=== PATIENT | female | born 1955 | race Caucasian/White ===

== ENCOUNTER 2020-07-30 09:51 | Outpatient (REF) | payer BC, SELFPAY ==
[2020-07-30 10:58] LABS: INTERNATIONAL NORM RATIO 1.8 (0.9-1.1); Prothrombin Time 21.6 SEC (10.8-13.0)
== END 2020-07-30 09:52 | disposition home or self-care (01) ==
LOC: HO.WFDLDS 09:51
PROVIDERS: Visit Provider Internal Medicine
DX: I82.3 Embolism and thrombosis of renal vein (principal); Z79.01 Long term (current) use of anticoagulants
CPT/HCPCS: 36415; 85610

== ENCOUNTER 2020-09-23 13:56 | Outpatient (REF) | payer BC, SELFPAY ==
[2020-09-23 14:10] LABS: INTERNATIONAL NORM RATIO 2.2 (0.9-1.1); Prothrombin Time 26.4 SEC (10.8-13.0)
== END 2020-09-23 13:57 | disposition home or self-care (01) ==
LOC: HO.LNP 13:56
PROVIDERS: Visit Provider Internal Medicine
DX: I82.3 Embolism and thrombosis of renal vein (principal); Z79.01 Long term (current) use of anticoagulants
CPT/HCPCS: 85610

== ENCOUNTER 2020-10-17 11:58 | Outpatient (REF) | payer BC, SELFPAY ==
[2020-10-17 14:13] LABS: INTERNATIONAL NORM RATIO 2.5 (0.9-1.1); Prothrombin Time 30.5 SEC (10.8-13.0)
== END 2020-10-17 11:59 | disposition home or self-care (01) ==
LOC: HO.WFDLDS 11:58
PROVIDERS: Visit Provider Internal Medicine
DX: I82.3 Embolism and thrombosis of renal vein (principal)
CPT/HCPCS: 36415; 85610

== ENCOUNTER 2020-11-24 09:49 | Outpatient (REF) | payer MEDICARE, SELFPAY ==
[2020-11-24 11:26] LABS: INTERNATIONAL NORM RATIO 1.8 (0.9-1.1); Prothrombin Time 20.9 SEC (10.8-13.0)
[2020-11-24 11:40] LABS: Cholesterol 216 mg/dL; HDL Cholesterol 39 mg/dL; LDL Cholesterol Calculated 157 mg/dl; Triglycerides 102 mg/dL
== END 2020-11-24 09:50 | disposition home or self-care (01) ==
LOC: HO.WFDLDS 09:49
PROVIDERS: Visit Provider Internal Medicine
DX: E78.00 Pure hypercholesterolemia, unspecified (principal)
CPT/HCPCS: 36415; 80061; 85610

== ENCOUNTER 2021-01-21 10:47 | Outpatient (REF) | payer MEDICARE, SELFPAY ==
[2021-01-21 14:01] LABS: INTERNATIONAL NORM RATIO 2.4 (0.9-1.1); Prothrombin Time 29.3 SEC (10.8-13.0)
== END 2021-01-21 10:48 | disposition home or self-care (01) ==
LOC: HO.WFDLDS 10:47
PROVIDERS: Visit Provider Internal Medicine
DX: I82.3 Embolism and thrombosis of renal vein (principal); Z79.01 Long term (current) use of anticoagulants
CPT/HCPCS: 36415; 85610

== ENCOUNTER 2021-04-14 11:10 | Outpatient (REF) | payer MEDICARE, SELFPAY ==
[2021-04-14 14:06] LABS: INTERNATIONAL NORM RATIO 2.6 (0.9-1.1); Prothrombin Time 30.4 SEC (9.9-13.0)
== END 2021-04-14 11:11 | disposition home or self-care (01) ==
LOC: HO.WFDLDS 11:10
PROVIDERS: Visit Provider Internal Medicine
DX: I82.3 Embolism and thrombosis of renal vein (principal); Z79.01 Long term (current) use of anticoagulants
CPT/HCPCS: 36415; 85610

== ENCOUNTER 2021-06-01 10:24 | Outpatient (REF) | payer MEDICARE, SELFPAY ==
[2021-06-01 10:27] LABS: MANUAL DIFF FLAG NO
[2021-06-01 11:00] LABS: Basophils Percent Auto 0.8 % (0-2); Eosinophils Absolute Auto 0.2 X10*3/uL (0.0-0.4); Eosinophils Percent Auto 2.9 % (0-4); Hematocrit 43.7 % (37.0-47.0); Hemoglobin 14.3 g/dl (12.0-16.0); Imm Gran Abs Auto 0.01 X10*3/uL (0.00-0.03); Imm Gran Pct Auto 0.2 % (0.0-0.4); Lymphocytes Absolute Auto 2.1 X10*3/uL (1.2-4.9); Lymphocytes Percent Auto 41.3 % (20-40); Mean Corpuscular HGB Conc 32.7 g/dl (31.0-35.0); Mean Corpuscular Hemoglobin 29.4 pg (27.0-33.0); Mean Corpuscular Volume 89.7 fL (80.0-98.0); Mean Platelet Volume 9.4 fL (9.4-12.3); Monocytes Absolute Auto 0.5 X10*3/uL (0.1-1.2); Monocytes Percent Auto 9.5 % (2-11); Neutrophils Absolute Auto 2.4 x10*3/uL (2.0-8.3); Neutrophils Percent Auto 45.3 % (45-73); Platelet Count 265 X10*3/uL (160-400); Red Blood Count 4.87 X10*6/uL (4.20-5.50); Red Cell Distribution Width 13.3 % (11.0-16.0); White Blood Count 5.2 X10*3/uL (4.8-10.8)
[2021-06-01 11:21] LABS: Alanine Aminotransferase 23 U/L (0-31); Albumin Level 4.2 g/dL (3.5-5.0); Alkaline Phosphatase 101 U/L (39-117); Anion Gap 12 (12-20); Aspartate Amino Transferase 23 U/L (5-31); Bilirubin Total 0.7 mg/dL (0.0-1.0); Blood Urea Nitrogen 13 mg/dL (9-16); Calcium 9.5 mg/dL (8.4-10.2); Carbon Dioxide 27 mmol/L (22-29); Chloride 108 mmol/L (96-108); Cholesterol 260 mg/dL; Estimated Glomerular Filt Rate > 60; Glucose Fasting 95 mg/dL (60-99); HDL Cholesterol 47 mg/dL; LDL Cholesterol Calculated 183 mg/dl; Potassium 4.5 mmol/L (3.3-5.1); Sodium 142 mmol/L (135-145); Total Protein 7.1 g/dL (6.5-8.0); Triglycerides 150 mg/dL
[2021-06-01 12:48] LABS: Reflex LDLD? No
== END 2021-06-01 10:25 | disposition home or self-care (01) ==
LOC: HO.LNP 10:24
PROVIDERS: Visit Provider Internal Medicine
DX: E78.00 Pure hypercholesterolemia, unspecified (principal); Z79.01 Long term (current) use of anticoagulants
CPT/HCPCS: 80053; 80061; 85025

== ENCOUNTER 2021-06-05 15:52 | Outpatient (REF) | payer MEDICARE, SELFPAY ==
[2021-06-05 16:02] LABS: Appearance Urine CLEAR; Color Urine YELLOW; Glucose Urine UA NEG (NEG); Leukocyte Esterase Urine 2+ (NEG); Nitrite Urine NEG (NEG); Urine Blood NEG (NEG); Urine Ketones NEG (NEG); Urine Protein NEG (NEG-TRACE)
[2021-06-05 16:08] LABS: Bacteria Urine TRACE /LPF; RBC Urine 0-2 /HPF (0); Renal Epithelial Cells Urine TRACE /LPF; Squamous Epithelial Cell Urine TRACE /LPF
== END 2021-06-05 15:53 | disposition home or self-care (01) ==
LOC: HO.LNP 15:52
PROVIDERS: Visit Provider Internal Medicine
DX: E78.00 Pure hypercholesterolemia, unspecified (principal)
CPT/HCPCS: 81001

== ENCOUNTER 2021-07-30 11:09 | Outpatient (REF) | payer MEDICARE, SELFPAY ==
[2021-07-30 14:04] LABS: INTERNATIONAL NORM RATIO 2.1 (0.9-1.1); Prothrombin Time 24.7 SEC (9.9-13.0)
== END 2021-07-30 11:10 | disposition home or self-care (01) ==
LOC: HO.WFDLDS 11:09
PROVIDERS: Visit Provider Internal Medicine
DX: I82.3 Embolism and thrombosis of renal vein (principal); Z79.01 Long term (current) use of anticoagulants
CPT/HCPCS: 36415; 85610

== ENCOUNTER 2021-09-10 10:45 | Outpatient (REF) | payer MEDICARE, SELFPAY ==
[2021-09-10 14:46] LABS: Appearance Urine HAZY; Color Urine YELLOW; Glucose Urine UA NEG (NEG); Leukocyte Esterase Urine 2+ (NEG); Nitrite Urine NEG (NEG); PH 6.5 (5.0-8.0); Urine Blood NEG (NEG); Urine Ketones NEG (NEG); Urine Protein NEG (NEG-TRACE)
[2021-09-10 15:01] LABS: INTERNATIONAL NORM RATIO 2.2 (0.9-1.1); Prothrombin Time 24.9 SEC (9.9-13.0)
[2021-09-10 15:04] LABS: Alanine Aminotransferase 20 U/L (0-31); Albumin Level 4.5 g/dL (3.5-5.0); Alkaline Phosphatase 114 U/L (39-117); Aspartate Amino Transferase 22 U/L (5-31); Bilirubin Direct 0.2 mg/dL (0.0-0.5); Bilirubin Total 0.5 mg/dL (0.0-1.0); Cholesterol 162 mg/dL; HDL Cholesterol 45 mg/dL; LDL Cholesterol Calculated 101 mg/dl; Total Protein 7.6 g/dL (6.5-8.0); Triglycerides 82 mg/dL
[2021-09-10 15:10] LABS: Bacteria Urine 1+ /LPF; RBC Urine 0 /HPF (0); Squamous Epithelial Cell Urine 1+ /LPF
== END 2021-09-10 10:46 | disposition home or self-care (01) ==
LOC: HO.LNP 10:45
PROVIDERS: Visit Provider Internal Medicine
DX: I82.3 Embolism and thrombosis of renal vein (principal); Z79.01 Long term (current) use of anticoagulants; E78.00 Pure hypercholesterolemia, unspecified
CPT/HCPCS: 80061; 80076; 81001; 85610

== ENCOUNTER 2021-10-19 11:32 | Outpatient (REF) | payer MEDICARE, SELFPAY ==
--- NOTE | ~2021-10-19 | US_ITS ---
EXAMINATION: US RETROPERITONEAL LIMITED (RENAL ONLY) CLINICAL INFORMATION: History of renal cell carcinoma. COMPARISON: None TECHNIQUE: Real-time imaging of the kidneys. FINDINGS: RIGHT KIDNEY: Surgically absent. LEFT KIDNEY: 12.1 x 5.3 x 5.9 cm (SAG x AP x TRV). The kidney is normal in size, contour, and echogenicity. Renal cortical thickness is normal. No calculi or focal parenchymal lesions. No hydronephrosis. US/US renal BI IMPRESSION: Normal left kidney.
== END 2021-10-19 11:33 | disposition home or self-care (01) ==
LOC: HO.US 11:32
PROVIDERS: PCP Internal Medicine; Visit Provider Internal Medicine
DX: Z85.528 Personal history of other malignant neoplasm of kidney (principal)
CPT/HCPCS: 76775

== ENCOUNTER 2021-11-17 06:25 | Day surgery (SDC) | payer MEDICARE, SELFPAY ==
[2021-11-17 05:51] VITALS: BMI 21.9
[2021-11-17 06:30] VITALS: BP 149/57; PULSE 86; RESP 18; TEMP 36.4; O2SAT 96
[2021-11-17 07:03] LABS: INTERNATIONAL NORM RATIO 1.1 (0.9-1.1)
--- NOTE | 2021-11-17 07:25 | MHC.SHP ---
Pre-Procedural Eval Section A Date of Service: 11/17/21 Section B Chief Complaint: screening Details of Present Illness: screening Relevant Family History (Specify if Yes): No Relevant Social History: None Present Medications: see Short Stay Collaborative assessment Medical History: No relevant PMH History of Previous Operations: No relevant previous surgery Allergies: Allergies Allergy/AdvReac Type Severity Reaction Status Date / Time Iodinated Contrast Media Allergy Unknown Verified 11/11/21 11:03 [IV Contrast Dye] Penicillins Allergy Unknown Verified 11/11/21 11:03 shellfish derived Allergy Unknown Verified 11/11/21 11:03 Review of Systems Sugical H&P ROS: Negative: Constitution, Cardiovascular, Respiratory, Neurological, Psychiatric, Hem-Onc, Allergic/Immunologic, Gastrointestinal, Genitourinary, Musculoskeletal, Integumentary, Endocrine and Eyes/Ears/Nose/Throat Exam Surgical H&P Exam: Normal: HEENT, Normal: Heart, Normal: Lungs, Normal: Extremities, Normal: Abdomen, Normal: Skin and Normal: Neurological Plan Diagnosis/Plan: Unchanged I have reviewed the history and physical and performed a pertinent physical examination on my patient. No changes have occurred unless specified.
--- NOTE | 2021-11-17 07:33 | HO.ANESPROP2 ---
[facility] Past Medical History Medical History Breast cancer DVT (deep venous thrombosis) Elevated cholesterol On anticoagulant therapy Osteopenia Panic attacks Renal cell carcinoma Functional capacity: independent ambulation Patient : No Family History Family history of problems with anesthesia: No Surgical History Surgical History History of right nephrectomy History of tubal ligation Hx of colonoscopy Hx of left mastectomy S/P IVC filter History of Problems with Anesthesia: Yes (PONV) Social History Social History Patient Tobacco Use Status: Never used Tobacco Are you DNR?: No Advance Directives: No Advance Directives Information Provided: Yes Meds Allergies Allergy/AdvReac Type Severity Reaction Status Date / Time Iodinated Contrast Media Allergy Unknown Verified 11/11/21 11:03 [IV Contrast Dye] Penicillins Allergy Unknown Verified 11/11/21 11:03 shellfish derived Allergy Unknown Verified 11/11/21 11:03 Home Medications Medication Instructions Recorded Confirmed Last Taken Type atorvastatin 20 mg tablet 1 tab PO DAILY 11/11/21 11/11/21 Unknown History calcium 600 mg capsule mg PO 11/11/21 Unknown History cetirizine 10 mg capsule (Zyrtec) 10 mg PO DAILY 11/11/21 11/11/21 Unknown History lorazepam 1 mg tablet 1 tab PO DAILY 11/11/21 11/11/21 Unknown History valacyclovir 500 mg tablet mg PO 11/11/21 Unknown History warfarin 2 mg tablet 3 tab PO DAILY 11/11/21 11/11/21 Unknown History Exam Exam Date and Time: November 17, 2021 0733 Height,Weight and Vital Signs: Height 5 ft 6 in Weight 61.689 kg Last Vital Signs Temp 97.6 F 11/17/21 06:30 Pulse 86 11/17/21 06:30 Resp 18 11/17/21 06:30 BP 149/57 H 11/17/21 06:30 Pulse Ox 96 11/17/21 06:30 Pertinent Lab Results Pertinent Lab Results: Laboratory Tests 11/17/21 06:37 PT 12.0 INR 1.1 Airway Mallampati Class: II TM Dist: >3cm Neck ROM: Full Heart: RRR Lungs: CTA Assessment and Plan Final Anesthetic Review Family History of Problems with Anesthesia: No History of Problems with Anesthesia: Yes (PONV) NPO: Yes ASA Class: II Final Preanesthetic Review: No Changes in Pt Med Stat, Meds/Allgs Chart Reviewed, Consent Obtained/Reviewed and Anes Risks/Benef Reviewed Patient Risk: Low Procedure Risk: Low Anesthetic Plan Anesthetic Plan: MAC: Disposition: Standard PACU
--- NOTE | 2021-11-17 07:52 | PM.OP ---
Brief Operative Note Date of Service: 11/17/21 Surgeon: Darian Serna Anesthesia: GLMA and MAC Was an Care Transport Nurse used for this Procedure?: No Estimated blood loss (mL): 0 Pathology: none sent Condition: stable Disposition: PACU
[2021-11-17 07:56] VITALS: BP 94/37; PULSE 75; RESP 16; TEMP 36.7; O2SAT 97
[2021-11-17 08:11] VITALS: BP 107/47; PULSE 81; RESP 16; TEMP 36.2; O2SAT 97
--- NOTE | 2021-11-17 11:18 | PM.ANESPN ---
Subjective Subjective Date of Service: 01/04/22 Physical Exam Vital Signs: Vital Signs: Last Vital Signs Temp 97.2 F 11/17/21 08:11 Pulse 81 11/17/21 08:11 Resp 16 11/17/21 08:11 BP 107/47 L 11/17/21 08:11 Pulse Ox 97 11/17/21 08:11 BMI result Body Mass Index 21.9 Progress Note: A&P Time Spent With Patient Time: Total time spent is greater than 50% in coordination of care (as documented) at patient's floor/unit and/or counseling patient:
--- NOTE | 2021-11-17 11:46 | OP_ITS ---
SURGEON: Darian Serna MD INDICATIONS: Colon cancer screening. PREOPERATIVE DIAGNOSIS: POSTOPERATIVE DIAGNOSIS: PROCEDURE PERFORMED: Colonoscopy to the terminal ileum. ESTIMATED BLOOD LOSS: COMPLICATIONS: ANESTHESIA: ASSISTANTS: SPECIMENS: MEDICATIONS: Monitored anesthesia care. DESCRIPTION OF PROCEDURE: History and physical were performed. The risks and benefits of the procedure were explained to the patient. Informed consent was obtained. The patient was placed in the left lateral decubitus position. A digital rectal exam was performed and was found to be normal. The Olympus pediatric video colonoscope was introduced into the rectum and advanced to the cecum without difficulty. The cecum was identified by transillumination, palpation, and identification of ileocecal valve. Examination was performed. The scope was removed. She tolerated the procedure well and was taken to recovery area in stable condition. FINDINGS: The terminal ileum was examined and appeared normal. The visualized colonic mucosa was within normal limits without evidence of masses or ulcers. No polyps were identified. The quality of the prep was excellent. Retroflexed examination showed small internal hemorrhoids. IMPRESSION: Normal colonoscopy. RECOMMENDATION: 1. Follow up as needed. 2. Repeat colonoscopy is recommended in 10 years for average risk individuals. MD STEVE Cain/QUIN / [id number]
--- NOTE | 2021-11-17 12:07 | HO.POSTANES ---
Post Anesthesia Evaluation Post Anesthesia Evaluation Vital Signs: Vital Signs Temp Pulse Resp BP Pulse Ox 11/17/21 08:11 97.2 F 81 16 107/47 L 97 11/17/21 07:56 98.1 F 75 16 94/37 L 97 11/17/21 06:30 97.6 F 86 18 149/57 H 96 Anesthesia: Monitored Mental Status: Awake Pain Control: Satisfactory Nausea/Vomiting: None Hydration: Adequate Anesthesia-Related Issues: No Anes. Related Issues
== END 2021-11-17 08:52 | disposition home or self-care (01) ==
PROVIDERS: Anesthesiology; PCP Internal Medicine; Visit Provider Internal Medicine Gastroenterology
PROC: 0DJD8ZZ Inspection of Lower Intestinal Tract, Via Natural or Artificial Opening Endoscopic (ICD-10-PCS; CPT 45378; principal; 2021-11-17 07:30)
DX: Z12.11 Encounter for screening for malignant neoplasm of colon (principal); Z86.010 Personal history of colon polyps; Z83.71 Family history of colonic polyps; Z80.0 Family history of malignant neoplasm of digestive organs; K64.8 Other hemorrhoids; E78.00 Pure hypercholesterolemia, unspecified; M85.80 Other specified disorders of bone density and structure, unspecified site; F41.0 Panic disorder [episodic paroxysmal anxiety]; Z85.3 Personal history of malignant neoplasm of breast; Z85.528 Personal history of other malignant neoplasm of kidney; Z86.718 Personal history of other venous thrombosis and embolism; Z79.01 Long term (current) use of anticoagulants; Z79.899 Other long term (current) drug therapy; Z88.0 Allergy status to penicillin; Z91.041 Radiographic dye allergy status
CPT/HCPCS: G0105; 36415; 85610

== ENCOUNTER 2022-02-16 10:43 | Outpatient (REF) | payer MEDICARE, SELFPAY ==
[2022-02-16 11:15] LABS: INTERNATIONAL NORM RATIO 1.8 (0.9-1.1); Prothrombin Time 20.7 SEC (10.0-13.1)
== END 2022-02-16 10:44 | disposition home or self-care (01) ==
LOC: HO.LNP 10:43
PROVIDERS: Visit Provider Internal Medicine
DX: I82.3 Embolism and thrombosis of renal vein (principal); Z79.01 Long term (current) use of anticoagulants
CPT/HCPCS: 85610

== ENCOUNTER 2022-02-23 11:26 | Outpatient (REF) | payer MEDICARE, SELFPAY ==
[2022-02-23 13:30] LABS: INTERNATIONAL NORM RATIO 2.2 (0.9-1.1); Prothrombin Time 25.9 SEC (10.0-13.1)
== END 2022-02-23 11:27 | disposition home or self-care (01) ==
LOC: HO.WFDLDS 11:26
PROVIDERS: Visit Provider Internal Medicine
DX: I82.3 Embolism and thrombosis of renal vein (principal); Z79.01 Long term (current) use of anticoagulants
CPT/HCPCS: 36415; 85610

== ENCOUNTER 2022-06-07 10:45 | Outpatient (REF) | payer MEDICARE, SELFPAY ==
[2022-06-07 10:49] LABS: MANUAL DIFF FLAG NO
[2022-06-07 10:59] LABS: Basophils Percent Auto 0.7 % (0-2); Eosinophils Absolute Auto 0.2 X10*3/uL (0.0-0.4); Eosinophils Percent Auto 3.8 % (0-4); Hematocrit 45.5 % (37.0-47.0); Hemoglobin 14.6 g/dl (12.0-16.0); Imm Gran Abs Auto 0.01 X10*3/uL (0.00-0.03); Imm Gran Pct Auto 0.2 % (0.0-0.4); Lymphocytes Absolute Auto 2.3 X10*3/uL (1.2-4.9); Lymphocytes Percent Auto 38.3 % (20-40); Mean Corpuscular HGB Conc 32.1 g/dl (31.0-35.0); Mean Corpuscular Hemoglobin 28.7 pg (27.0-33.0); Mean Corpuscular Volume 89.6 fL (80.0-98.0); Mean Platelet Volume 9.6 fL (9.4-12.3); Monocytes Absolute Auto 0.6 X10*3/uL (0.1-1.2); Monocytes Percent Auto 9.9 % (2-11); Neutrophils Absolute Auto 2.8 x10*3/uL (2.0-8.3); Neutrophils Percent Auto 47.1 % (45-73); Platelet Count 310 X10*3/uL (160-400); Red Blood Count 5.08 X10*6/uL (4.20-5.50); Red Cell Distribution Width 13.1 % (11.0-16.0)
[2022-06-07 11:02] LABS: INTERNATIONAL NORM RATIO 2.5 (0.9-1.1); Prothrombin Time 30.4 SEC (10.0-13.1)
[2022-06-07 11:11] LABS: Alanine Aminotransferase 29 U/L (0-31); Albumin Level 4.5 g/dL (3.5-5.0); Alkaline Phosphatase 101 U/L (39-117); Anion Gap 16 (12-20); Aspartate Amino Transferase 28 U/L (5-31); Bilirubin Total 0.6 mg/dL (0.0-1.0); Blood Urea Nitrogen 10 mg/dL (9-16); Calcium 10.1 mg/dL (8.4-10.2); Carbon Dioxide 25 mmol/L (22-29); Chloride 107 mmol/L (96-108); Cholesterol 163 mg/dL; Estimated Glomerular Filt Rate > 60; Glucose Fasting 98 mg/dL (60-99); HDL Cholesterol 47 mg/dL; LDL Cholesterol Calculated 95 mg/dl; Potassium 4.7 mmol/L (3.3-5.1); Sodium 143 mmol/L (135-145); Total Protein 7.5 g/dL (6.5-8.0); Triglycerides 107 mg/dL
[2022-06-07 11:34] LABS: Appearance Urine Clear; Color Urine Yellow; Glucose Urine UA Negative (Negative); Leukocyte Esterase Urine Moderate (2+) (Negative); Nitrite Urine Negative (Negative); Specific Gravity - Urine 1.015 (1.005-1.025); UMIC TRIGGER UA YES; Urine Blood Trace (Negative); Urine Ketones Negative (Negative); Urine Protein Negative (Neg-Trace)
[2022-06-07 11:54] LABS: RBC Urine 0-2 /HPF (0-2); WBC Urine 0-5 /HPF (0-5)
[2022-06-07 11:55] LABS: Bacteria Urine Trace (None Seen); Hyaline Casts Urine 0-2 /LPF (0-2); Renal Epithelial Cells Urine Present; Squamous Epithelial Cell Urine 0-2 /HPF (0-2)
== END 2022-06-07 10:46 | disposition home or self-care (01) ==
LOC: HO.LNP 10:45
PROVIDERS: Visit Provider Internal Medicine
DX: E78.00 Pure hypercholesterolemia, unspecified (principal); I82.3 Embolism and thrombosis of renal vein; Z79.01 Long term (current) use of anticoagulants
CPT/HCPCS: 80053; 80061; 81001; 85025; 85610

== ENCOUNTER 2022-11-05 14:55 | Outpatient (REF) | payer MEDICARE, SELFPAY ==
[2022-11-05 15:10] LABS: INTERNATIONAL NORM RATIO 1.9 (0.9-1.1); Prothrombin Time 22.5 SEC (10.0-13.1)
== END 2022-11-05 14:56 | disposition home or self-care (01) ==
LOC: HO.LNP 14:55
PROVIDERS: Visit Provider Internal Medicine
DX: Z13.89 Encounter for screening for other disorder (principal)
CPT/HCPCS: 85610

== ENCOUNTER 2023-06-14 10:24 | Outpatient (REF) | payer MEDICARE, SELFPAY ==
[2023-06-14 10:30] LABS: MANUAL DIFF FLAG NO
[2023-06-14 11:10] LABS: Basophils Percent Auto 0.6 % (0-2); Eosinophils Absolute Auto 0.1 X10*3/uL (0.0-0.4); Eosinophils Percent Auto 2.2 % (0-4); Hematocrit 44.9 % (37.0-47.0); Hemoglobin 14.5 g/dl (12.0-16.0); Imm Gran Abs Auto 0.02 X10*3/uL (0.00-0.03); Imm Gran Pct Auto 0.4 % (0.0-0.4); Lymphocytes Absolute Auto 1.8 X10*3/uL (1.2-4.9); Lymphocytes Percent Auto 33.8 % (20-40); Mean Corpuscular HGB Conc 32.3 g/dl (31.0-35.0); Mean Corpuscular Hemoglobin 29.5 pg (27.0-33.0); Mean Corpuscular Volume 91.3 fL (80.0-98.0); Mean Platelet Volume 9.6 fL (9.4-12.3); Monocytes Absolute Auto 0.5 X10*3/uL (0.1-1.2); Monocytes Percent Auto 8.7 % (2-11); Neutrophils Absolute Auto 2.9 x10*3/uL (2.0-8.3); Neutrophils Percent Auto 54.3 % (45-73); Platelet Count 299 X10*3/uL (160-400); Red Blood Count 4.92 X10*6/uL (4.20-5.50); Red Cell Distribution Width 13.2 % (11.0-16.0); White Blood Count 5.4 X10*3/uL (4.8-10.8)
[2023-06-14 11:13] LABS: INTERNATIONAL NORM RATIO 1.3 (0.9-1.1); Prothrombin Time 15.7 SEC (11.1-13.3)
[2023-06-14 11:20] LABS: Alanine Aminotransferase 30 U/L (0-31); Albumin Level 4.4 g/dL (3.5-5.0); Alkaline Phosphatase 93 U/L (39-117); Anion Gap 9 (12-20); Aspartate Amino Transferase 28 U/L (5-31); Bilirubin Total 0.7 mg/dL (0.0-1.0); Blood Urea Nitrogen 10 mg/dL (9-16); Calcium 9.8 mg/dL (8.4-10.2); Carbon Dioxide 30 mmol/L (22-29); Chloride 109 mmol/L (96-108); Cholesterol 149 mg/dL (<200); Estimated Glomerular Filt Rate > 60; Glucose Random 107 mg/dL (60-115); HDL Cholesterol 41 mg/dL (>40); LDL Cholesterol Calculated 95 mg/dL (<100); Potassium 4.7 mmol/L (3.3-5.1); Sodium 143 mmol/L (135-145); Total Protein 7.4 g/dL (6.5-8.0); Triglycerides 69 mg/dL (<150)
== END 2023-06-14 10:25 | disposition home or self-care (01) ==
LOC: HO.LNP 10:24
PROVIDERS: Visit Provider Internal Medicine
DX: E78.00 Pure hypercholesterolemia, unspecified (principal); I82.3 Embolism and thrombosis of renal vein; Z79.01 Long term (current) use of anticoagulants
CPT/HCPCS: 80053; 80061; 85025; 85610

== ENCOUNTER 2023-06-20 15:30 | Outpatient (REF) | payer MEDICARE, SELFPAY ==
[2023-06-20 15:43] LABS: Appearance Urine Cloudy; Color Urine Yellow; Glucose Urine UA Negative (Negative); Leukocyte Esterase Urine Moderate (2+) (Negative); Nitrite Urine Negative (Negative); Specific Gravity - Urine <= 1.005 (1.005-1.025); UMIC TRIGGER UACC YES; Urine Blood Negative (Negative); Urine Ketones Negative (Negative); Urine Protein Negative (Neg-Trace)
[2023-06-20 15:46] LABS: Bacteria Urine None Seen (None Seen); Hyaline Casts Urine 0-2 /LPF (0-2); RBC Urine 0-2 /HPF (0-2); Squamous Epithelial Cell Urine 0-2 /HPF (0-2); UACC Culture Trigger YES
[2023-06-20 15:53] LABS: Prothrombin Time 24.4 SEC (11.1-13.3)
== END 2023-06-20 15:31 | disposition home or self-care (01) ==
LOC: HO.LNP 15:30
PROVIDERS: Visit Provider Internal Medicine
DX: I82.3 Embolism and thrombosis of renal vein (principal); E78.00 Pure hypercholesterolemia, unspecified; R82.90 Unspecified abnormal findings in urine; Z79.01 Long term (current) use of anticoagulants
CPT/HCPCS: 81001; 85610; 87086; 87147

== ENCOUNTER 2023-11-08 11:02 | Outpatient (REF) | payer MEDICARE, SELFPAY ==
[2023-11-08 11:16] LABS: INTERNATIONAL NORM RATIO 2.1 (0.9-1.1); Prothrombin Time 25.6 SEC (11.1-13.3)
== END 2023-11-08 11:03 | disposition home or self-care (01) ==
LOC: HO.LNP 11:02
PROVIDERS: Visit Provider Internal Medicine
DX: I82.3 Embolism and thrombosis of renal vein (principal); Z79.01 Long term (current) use of anticoagulants
CPT/HCPCS: 85610

== ENCOUNTER 2023-12-13 11:08 | Outpatient (REF) | payer MEDICARE, SELFPAY ==
[2023-12-13 11:21] LABS: INTERNATIONAL NORM RATIO 1.8 (0.9-1.1); Prothrombin Time 21.3 SEC (11.1-13.3)
[2023-12-13 11:44] LABS: Alanine Aminotransferase 30 U/L (0-31); Albumin Level 4.2 g/dL (3.5-5.0); Alkaline Phosphatase 100 U/L (39-117); Aspartate Amino Transferase 28 U/L (5-31); Bilirubin Direct 0.2 mg/dL (0.0-0.5); Bilirubin Total 0.6 mg/dL (0.0-1.0); Cholesterol 153 mg/dL (<200); HDL Cholesterol 44 mg/dL (>40); LDL Cholesterol Calculated 92 mg/dL (<100); Total Protein 7.3 g/dL (6.5-8.0); Triglycerides 87 mg/dL (<150)
[2023-12-13 15:23] LABS: Reflex LDLD? No
== END 2023-12-13 11:09 | disposition home or self-care (01) ==
LOC: HO.LNP 11:08
PROVIDERS: Visit Provider Internal Medicine
DX: E78.00 Pure hypercholesterolemia, unspecified (principal); Z79.01 Long term (current) use of anticoagulants
CPT/HCPCS: 80061; 80076; 85610

== ENCOUNTER 2024-01-03 09:33 | Outpatient (REF) | payer MEDICARE, SELFPAY ==
--- NOTE | ~2024-01-03 | XR_ITS ---
EXAMINATION: XR CHEST CLINICAL INFORMATION: Patient states cough and radiating pain throughout chest for one week. COMPARISON: None available. TECHNIQUE: 2 views of the chest were obtained. FINDINGS: There is no gross pneumothorax. Degenerative changes in the thoracic spine. Mild bilateral costophrenic angle blunting could represent trace pleural effusion versus pleural thickening, right greater than left. Mildly prominent diffuse interstitial markings of indeterminate age. Mediastinal clips. Filter type device in the right upper quadrant, just to the right of midline. XR/XR chest 2V IMPRESSION: 1. Mild bilateral costophrenic angle blunting could represent trace pleural effusion versus pleural thickening, right greater than left. 2. Mildly prominent diffuse interstitial markings of indeterminate age.
== END 2024-01-03 09:34 | disposition home or self-care (01) ==
LOC: HO.XRAY 09:33
PROVIDERS: PCP Internal Medicine; Visit Provider Internal Medicine
DX: R05.9 Cough, unspecified (principal)
CPT/HCPCS: 71046

== ENCOUNTER 2024-01-24 10:33 | Outpatient (REF) | payer MEDICARE, SELFPAY ==
[2024-01-24 10:48] LABS: INTERNATIONAL NORM RATIO 1.2 (0.9-1.1); Prothrombin Time 14.9 SEC (11.1-13.3)
== END 2024-01-24 10:34 | disposition home or self-care (01) ==
LOC: HO.LNP 10:33
PROVIDERS: Visit Provider Internal Medicine
DX: Z79.01 Long term (current) use of anticoagulants (principal); I82.3 Embolism and thrombosis of renal vein
CPT/HCPCS: 85610

== ENCOUNTER 2024-03-12 10:50 | Outpatient (REF) | payer MEDICARE, SELFPAY ==
[2024-03-12 11:01] LABS: INTERNATIONAL NORM RATIO 1.6 (0.9-1.1); Prothrombin Time 19.2 SEC (11.1-13.3)
== END 2024-03-12 10:51 | disposition home or self-care (01) ==
LOC: HO.LNP 10:50
PROVIDERS: Visit Provider Internal Medicine
DX: I82.3 Embolism and thrombosis of renal vein (principal); Z79.01 Long term (current) use of anticoagulants
CPT/HCPCS: 85610

== ENCOUNTER 2024-03-20 10:39 | Outpatient (REF) | payer MEDICARE, SELFPAY ==
[2024-03-20 10:53] LABS: Prothrombin Time 24.3 SEC (11.1-13.3)
== END 2024-03-20 10:40 | disposition home or self-care (01) ==
LOC: HO.LNP 10:39
PROVIDERS: Visit Provider Internal Medicine
DX: I82.3 Embolism and thrombosis of renal vein (principal); Z79.01 Long term (current) use of anticoagulants
CPT/HCPCS: 85610

== ENCOUNTER 2024-04-03 11:31 | Outpatient (REF) | payer MEDICARE, SELFPAY ==
[2024-04-03 12:30] LABS: INTERNATIONAL NORM RATIO 2.5 (0.9-1.1); Prothrombin Time 29.9 SEC (11.1-13.3)
== END 2024-04-03 11:32 | disposition home or self-care (01) ==
LOC: HO.LNP 11:31
PROVIDERS: Visit Provider Internal Medicine
DX: Z51.81 Encounter for therapeutic drug level monitoring (principal); Z79.01 Long term (current) use of anticoagulants
CPT/HCPCS: 85610

== ENCOUNTER 2024-06-25 12:55 | Outpatient (REF) | payer MEDICARE, SELFPAY ==
[2024-06-25 13:01] LABS: MANUAL DIFF FLAG NO
[2024-06-25 13:37] LABS: Basophils Percent Auto 0.8 % (0-2); Eosinophils Absolute Auto 0.1 X10*3/uL (0.0-0.4); Eosinophils Percent Auto 2.4 % (0-4); Hematocrit 44.8 % (37.0-47.0); Hemoglobin 14.9 g/dl (12.0-16.0); Imm Gran Abs Auto 0.02 X10*3/uL (0.00-0.03); Imm Gran Pct Auto 0.4 % (0.0-0.4); Lymphocytes Absolute Auto 1.8 X10*3/uL (1.2-4.9); Lymphocytes Percent Auto 36.7 % (20-40); Mean Corpuscular HGB Conc 33.3 g/dl (31.0-35.0); Mean Corpuscular Volume 90.1 fL (80.0-98.0); Mean Platelet Volume 9.5 fL (9.4-12.3); Monocytes Absolute Auto 0.5 X10*3/uL (0.1-1.2); Monocytes Percent Auto 9.6 % (2-11); Neutrophils Absolute Auto 2.5 x10*3/uL (2.0-8.3); Neutrophils Percent Auto 50.1 % (45-73); Platelet Count 277 X10*3/uL (160-400); Red Blood Count 4.97 X10*6/uL (4.20-5.50); Red Cell Distribution Width 13.7 % (11.0-16.0); White Blood Count 4.9 X10*3/uL (4.8-10.8)
[2024-06-25 13:40] LABS: Appearance Urine Clear; Color Urine Yellow; Glucose Urine UA Negative (Negative); Leukocyte Esterase Urine Large (3+) (Negative); Nitrite Urine Negative (Negative); Specific Gravity - Urine 1.015 (1.005-1.025); UMIC TRIGGER UACC YES; Urine Blood Negative (Negative); Urine Ketones Negative (Negative); Urine Protein Negative (Neg-Trace)
[2024-06-25 13:42] LABS: Bacteria Urine None Seen (None Seen); Hyaline Casts Urine 0-2 /LPF (0-2); RBC Urine 0-2 /HPF (0-2); UACC Culture Trigger YES; WBC Urine 21-50 /HPF (0-5)
[2024-06-25 13:48] LABS: INTERNATIONAL NORM RATIO 1.8 (0.9-1.1); Prothrombin Time 20.6 SEC (10.9-12.4)
[2024-06-25 14:22] LABS: Alanine Aminotransferase 33 U/L (0-31); Albumin Level 4.3 g/dL (3.5-5.0); Alkaline Phosphatase 92 U/L (39-117); Anion Gap 10 (12-20); Aspartate Amino Transferase 40 U/L (5-31); Bilirubin Total 0.5 mg/dL (0.0-1.0); Blood Urea Nitrogen 10 mg/dL (9-16); Calcium 10.4 mg/dL (8.4-10.2); Carbon Dioxide 27 mmol/L (22-29); Chloride 108 mmol/L (96-108); Cholesterol 158 mg/dL (<200); Estimated Glomerular Filt Rate > 60; Glucose Fasting 98 mg/dL (60-99); HDL Cholesterol 40 mg/dL (>40); LDL Cholesterol Calculated 83 mg/dL (<100); Potassium 5.1 mmol/L (3.3-5.1); Sodium 140 mmol/L (135-145); Total Protein 7.3 g/dL (6.5-8.0); Triglycerides 176 mg/dL (<150)
== END 2024-06-25 12:56 | disposition home or self-care (01) ==
LOC: HO.LNP 12:55
PROVIDERS: Visit Provider Internal Medicine
DX: E78.00 Pure hypercholesterolemia, unspecified (principal); Z79.01 Long term (current) use of anticoagulants; I82.3 Embolism and thrombosis of renal vein
CPT/HCPCS: 80053; 80061; 81001; 85025; 85610; 87086; 87147

== ENCOUNTER 2024-07-20 12:04 | Outpatient (REF) | payer MEDICARE, SELFPAY ==
--- OUTSIDE RECORDS SUMMARY | 2024-07-20 12:09 | XMS_ITS ---
Author Organization Jake Ware MD Address [address] [place], [place] [id number] Care Team Providers Care [place]ings [place] Pumper Name Role Phone Jake Ware Primary Care Provider [phone] ALLERGIES Allergen (clinical drug ingredient) Drug/Non Drug Allergy documented on EMR Reaction Allergy Type Onset Date Status penicillin V Penicillin V Potassium rash Drug Allergy Active Contrast Dye shell fish (uncoded) swelling Allergy Active REASON FOR VISIT review labs MEDICATIONS Medication SIG (Take, Route, Frequency, Duration) Notes Start Date End Date Status Ventolin HFA 108 (90 Base) MCG/ACT 2 puffs as needed Inhalation every 4 hrs for 30 days 07/20/2013 Not-Taking Valtrex 500 MG 1 tablet Orally Once a day Not-Taking Cyclobenzaprine HCl 5 MG 1 tablet as nee ded Orally two times a day for 10 days 03/15/2017 Not-Taking Meclizine HCl 25 MG 1 tablet as needed Orally every 12 hrs for 7 days 07/22/2022 Not-Taking Albuterol Sulfate HFA 108 (90 Base) MCG/ACT 1 puff as needed Inhalation every 4 hrs for 30 days 12/29/2023 Not-Taking Mucinex Maximum Strength 1200 MG 1 tablet as needed Orally every 12 hrs Not-Taking Atorvastatin Calcium 20 MG TAKE 1 TABLET BY MOUTH EVERY DAY for 90 Active LORazepam 1 MG 1 tablet Orally once a day for 30 days 07/02/2024 Active ZyrTEC Allergy 10 MG 2 tablets Orally On ce a day for 30 day(s) Active Warfarin Sodium 2 MG TAKE 3 TABLETS BY MOUTH EVERY DAY for 90 Active Biotin 2.5 MG 1 capsule Orally Onc e a day for 30 day(s) Active SOCIAL HISTORY Tobacco Use: Social History Observation Description Date Details (start date - stop date) Never Smoker NA - NA Sex Assigned At : Social History Observation Description Sex Assigned At Unknown Tobacco Use/Smoking Question Answer Notes Patient is a nonsmoker Additional Findings: Tobacco Non-User Cu rrent non-smoker, currently using no form of tobacco Alcohol Screen Question Answer Notes Did you have a drink containing alcohol in the p ast year? No Points 0 Interpretation Negative PROBLEMS Problem Type ICD Code Onset Dates Problem Status W/U Status Risk SNOMED Code Notes Problem Hypercalcemia (E83.52) Active confirmed 54561475 VITAL SIGNS BMI 24.53 kg/m2 07/02/2024 Blood pressure systolic 142 mm Hg 07/02/20 24 Blood pressure diastolic 58 mm Hg 024 Height 66 in 07/02/2024 Weight 152 lbs 07/02/2024 weight is up 2 pounds since Encounters Encounter Location Date Provider Diagnosis Jake Ware MD [address] [place] [address] [address] [place], [place] [phone] 07/02/2024 Jake Ware Panic attacks F41.0 ; History of breast cancer Z85.3 ; 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 ; Malignant neoplasm of left kidney, except renal pelvis C64.2 ; Hypercalcemia E83.52 and Depression screening Z13.31 ASSESSMENTS Encounter Date Diagnosis Assessment Notes Treatment Notes Treatment Clinical Notes 07/02/2024 Panic attacks (ICD-1 0 - F41.0) takes ativan occasionally, will continue current regiment 07/02/2024 History of breast cancer (ICD-10 - Z85.3) followed by [facility] 07/02/2024 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 repeat ca with next blood draw, will continue to monitor 07/02/2024 Depression screening (ICD-10 - Z13.31) negative screen PLAN OF TREATMENT Medication Medication Name Sig Start Date Stop Date Notes LORazepam 1 MG 1 tablet Orally once a day for 30 days 03/2024 Treatment Notes Assessment Notes Panic attacks takes ativan occasio gene, will continue current regiment History of breast cancer [facility] by [facility] Embolism and thrombosis of renal vein re nurys on anticoagulant, will continue current regiment Malignant neoplasm of left diana lucas, except renal pelvis has been many years Hypercalcemia only minimally eleva fatmata. repeat ca with next blood draw, will continue to monitor Depression screening negative screen Next Appt Details Follow Up: 1 Year, Reason: Provider Name:Jake Mark ier, 06/28/2025 08:00:00 AM, [address] [facility], [address], [place], [place], [phone], Provider Name:Jake Mark ier, 07/05/2025 01:00:00 PM, [address] [facility], [address], [place], [place], [phone], Progress Notes * Examination Category Sub-Category Detail Notes General Examination GENERAL APPEARANCE: well dev eloped, well nourished, in no acute distress HEAD: normocephalic, atrau matic EYES: pupils equal, round, reactive to light and accommodation, sclera non- icteric EARS: normal THROAT: clear NECK/THYROID: neck supple, full ra nge of motion, no cervical lymphadenopathy, no bruits HEART: regular rate and rhy thm, S1, S2 normal, no murmurs LUNGS: clear to auscultatio n bilaterally ABDOMEN: soft, nontender, non distended, bowel sounds present, normal, no organomegaly , no masses palpable NEUROLOGIC: nonfocal, motor stre ngth normal upper and lower extremities, sensory exam intact SKIN: warm and dry, no miguel picious lesions EXTREMITIES: no clubbing, cyanosi s, or edema BREASTS: done by associate relations specialist RECTAL EXAM: done by associate relations specialist FEMALE GENITOURINARY: done by associate relations specialist ORAL CAVITY: mucosa moist History and Physical Notes * HPI (History of Present Illness) Category Sub-Category Detail Notes Depression Screening PHQ-9 Little inte rest or pleasure in doing things: Not at all Feeling down, depressed, or hopeless: No t at all Trouble falling or staying asleep, or sl eeping too much: Not at all Feeling tired or having little energy: N ot at all Poor appetite or overeating: Not at all Feeling bad about yourself o r that you are a failure, or have let yourself or your family down: Not at all Trouble concentrating on thi ngs, such as reading the newspaper or watching television: Not at all Moving or speaking so slowly that other people could have noticed; or the opposite, being so fidgety or restless that you have been moving around a lot more than usual: Not at all Thoughts that you would be b johan off or of hurting yourself in some way: Not at all Total Score: 0 Interpretation and Intervention Depression Summer quezada Findings: Negative Follow-Up for Depression: : review of PH Q-9 found negative result, no follow-up needed SDOH Questions SDOH Questions In the past year have you been worried about losing housing?: No In the past year have you or any family members you live with been unable to get any of the following when it was really needed? Check all that apply:: None Fall Risk History Have you had any falls with injury in the past year?: No Have you had two or more falls in the st year?: No Communication Needs Communication Needs Does the patient have a hearing impairment: No Does the patient have a vision impairmen t?: Yes ?If yes, what is the vision impairment?: Glasses Does the patient have a cognition impair ment?: No
--- OUTSIDE RECORDS SUMMARY | 2024-07-20 12:09 | XMS_ITS ---
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. 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. [phone] Pending Test Test Name Order Date Prothrombin Time INR 07/20/2024 Next Appt Details Provider Name:Jake Mark ier, 06/28/2025 08:00:00 AM, [address] [place] [address], Suite [facility], [place], [place], [phone], Provider Name:Jake ortega, 07/05/2025 01:00:00 PM, [address] [place] [address], Suite [facility], [place], [place], [phone],
--- OUTSIDE RECORDS SUMMARY | 2024-07-20 12:10 | XMS_ITS | Patient Health Record ---
Author Organization Jake Ware MD Address [address] [place], [place] [id number] Care Team Providers Care Machine Molder Squeeze Name Role Phone Jake Ware Primary Care Provider [phone] ALLERGIES Allergen (clinical drug ingredient) Drug/Non Drug Allergy documented on EMR Reaction Allergy Type Onset Date Status penicillin V Penicillin V Potassium rash Drug Allergy Active Contrast Dye shell fish (uncoded) swelling Allergy Active RESULTS Component Value Reference Range Notes Prothrombin Time INR Reviewed date:11/08/2023 11:45:34 AM Interpretation: Performing Lab:[facility], [address] [place] [phone] Notes/Report: Prothrombin Time 25.6 11.1-13.3 SEC INTERNATIONAL NORM RATIO 2.1 0.9-1.1 INTERNATIONAL NORMALIZED RATIO (INR) REFERENCE RANGES Reference Range For patients not on anticoagulant therapy: 0.9 - 1.1 INR ranges for oral anticoagulant therapy: For prevention and treatment of venous thrombosis and pulmonary embolism: 2.0 - 3.0 For acute myocardial infarction with aspirin therapy: 2.0 - 3.0 For acute myocardial infarction without aspirin therapy: 3.0 - 4.0 For patients with mechanical prosthetic heart valves: 2.5 - 3.5 Prothrombin Time INR Reviewed date:12/13/2023 04:32:42 PM Interpretation: Performing Lab:[address] [address] Notes/Report: Prothrombin Time 21.3 11.1-13.3 SEC INTERNATIONAL NORM RATIO 1.8 0.9-1.1 INTERNATIONAL NORMALIZED RATIO (INR) REFERENCE RANGES Reference Range For patients not on anticoagulant therapy: 0.9 - 1.1 INR ranges for oral anticoagulant therapy: For prevention and treatment of venous thrombosis and pulmonary embolism: 2.0 - 3.0 For acute myocardial infarction with aspirin therapy: 2.0 - 3.0 For acute myocardial infarction without aspirin therapy: 3.0 - 4.0 For patients with mechanical prosthetic heart valves: 2.5 - 3.5 Liver Panel Reviewed date:12/13/2023 04:32:19 PM Interpretation: Performing Lab:[facility], [address] [place] [phone] Notes/Report: Bilirubin Total 0.6 0.0-1.0 mg/dL Bilirubin Direct 0.2 0.0-0.5 mg/dL Aspartate Amino Transferase 28 5-31 U/L Alanine Aminotransferase 30 0-31 U/L Total Protein 7.3 6.5-8.0 g/dL Albumin Level 4.2 3.5-5.0 g/dL Alkaline Phosphatase 100 39-117 U/L Lipid Panel with Reflex Reviewed date:12/13/2023 04:32:31 PM Interpretation: Performing Lab:[facility], [address] [place] [phone] Notes/Report: Triglycerides 87 <150 mg/dL Desirable Triglyceride: less than 150 mg/dL Borderline High Triglyceride 150-199 mg/dL High Triglyceride: 200-499 mg/dL Very High Triglyceride: greater than or equal to 5OO mg/dL Cholesterol 153 <200 mg/dL Desirable Cholesterol: less than 200 mg/dL Borderline High Cholesterol: 200-239 mg/dL High Cholesterol: greater than 239 mg/dL LDL Cholesterol Calculated 92 <100 mg/dL Desirable LDL: less than 100 mg/dL Near Optimal/Above Optimal LDL: 110-129 mg/dL Borderline High LDL: 130-159 mg/dL High LDL: 160-189 mg/dL Very High LDL: greater than or equal to 190 mg/dL HDL Cholesterol 44 >40 mg/dL Desirable HDL: greater than 40 mg/dL Note: This HDL assay may give artificially low results in patients with liver disease. XR chest 2V Reviewed date:01/24/2024 11:51:07 AM Interpretation:see back 01-24-2024 Performing Lab: Notes/Report: [address] [address] XRay Report Signed Patient: Ruth Ceballos MR#: [id number] : 1955 Acct:[id number] Age/Sex: 68 / F ADM Date: 01/03/24 Loc: [facility] Attending Dr: Jake Ware MD Ordering Physician: Jake Ware MD Date of Service: 01/03/24 Procedure(s): XR chest 2V Accession Number(s): [id number] cc: Jake Ware MD EXAMINATION: XR CHEST CLINICAL INFORMATION: Patient states cough and radiating pain throughout chest for one week. COMPARISON: None available. TECHNIQUE: 2 views of the chest were obtained. FINDINGS: There is no gross pneumothorax. Degenerative changes in the thoracic spine. Mild bilateral costophrenic angle blunting could represent trace pleural effusion versus pleural thickening, right greater than left. Mildly prominent diffuse interstitial markings of indeterminate age. Mediastinal clips. Filter type device in the right upper quadrant, just to the right of midline. XR/XR chest 2V IMPRESSION: 1. Mild bilateral costophrenic angle blunting could represent trace pleural effusion versus pleural thickening, right greater than left. 2. Mildly prominent diffuse interstitial markings of indeterminate age. Dictated By: Lea Bauer MD Signed By: <Electronically signed by Lea Bauer MD in OV> 01/16/24 1027 DD/ 1019 TD/TT: Contracts Advisor: Prothrombin Time INR Reviewed date:01/24/2024 12:30:50 PM Interpretation: Performing Lab:[address] [phone] Notes/Report: Prothrombin Time 14.9 11.1-13.3 SEC INTERNATIONAL NORM RATIO 1.2 0.9-1.1 INTERNATIONAL NORMALIZED RATIO (INR) REFERENCE RANGES Reference Range For patients not on anticoagulant therapy: 0.9 - 1.1 INR ranges for oral anticoagulant therapy: For prevention and treatment of venous thrombosis and pulmonary embolism: 2.0 - 3.0 For acute myocardial infarction with aspirin therapy: 2.0 - 3.0 For acute myocardial infarction without aspirin therapy: 3.0 - 4.0 For patients with mechanical prosthetic heart valves: 2.5 - 3.5 Prothrombin Time INR Reviewed date:03/12/2024 12:45:00 PM Interpretation: Performing Lab:[address] [place] [address] Notes/Report: Prothrombin Time 19.2 11.1-13.3 SEC INTERNATIONAL NORM RATIO 1.6 0.9-1.1 INTERNATIONAL NORMALIZED RATIO (INR) REFERENCE RANGES Reference Range For patients not on anticoagulant therapy: 0.9 - 1.1 INR ranges for oral anticoagulant therapy: For prevention and treatment of venous thrombosis and pulmonary embolism: 2.0 - 3.0 For acute myocardial infarction with aspirin therapy: 2.0 - 3.0 For acute myocardial infarction without aspirin therapy: 3.0 - 4.0 For patients with mechanical prosthetic heart valves: 2.5 - 3.5 Prothrombin Time INR Reviewed date:03/20/2024 12:05:48 PM Interpretation: Performing Lab:[address] [phone] Notes/Report: Prothrombin Time 24.3 11.1-13.3 SEC INTERNATIONAL NORM RATIO 2.0 0.9-1.1 INTERNATIONAL NORMALIZED RATIO (INR) REFERENCE RANGES Reference Range For patients not on anticoagulant therapy: 0.9 - 1.1 INR ranges for oral anticoagulant therapy: For prevention and treatment of venous thrombosis and pulmonary embolism: 2.0 - 3.0 For acute myocardial infarction with aspirin therapy: 2.0 - 3.0 For acute myocardial infarction without aspirin therapy: 3.0 - 4.0 For patients with mechanical prosthetic heart valves: 2.5 - 3.5 Prothrombin Time INR Reviewed date:04/03/2024 02:46:36 PM Interpretation: Performing Lab:[address] [address] Notes/Report: Prothrombin Time 29.9 11.1-13.3 SEC INTERNATIONAL NORM RATIO 2.5 0.9-1.1 INTERNATIONAL NORMALIZED RATIO (INR) REFERENCE RANGES Reference Range For patients not on anticoagulant therapy: 0.9 - 1.1 INR ranges for oral anticoagulant therapy: For prevention and treatment of venous thrombosis and pulmonary embolism: 2.0 - 3.0 For acute myocardial infarction with aspirin therapy: 2.0 - 3.0 For acute myocardial infarction without aspirin therapy: 3.0 - 4.0 For patients with mechanical prosthetic heart valves: 2.5 - 3.5 Urine Culture Reviewed date:06/26/2024 12:44:43 PM Interpretation: Performing Lab:[facility] [address], [place] [address] Notes/Report: O:STRAGA Strep agalactiae (Gr p B) Urine Culture Quant Urine Culture 50,000 to 100,000 cfu/mL Urine Culture Susc N/A Urine Culture Susceptibility not routinely performed on this isolate. Complete Blood Count Auto Di ff Reviewed date:06/25/2024 05:18:31 PM Interpretation: Performing Lab:[facility], [address] [place] [phone] Notes/Report: White Blood Count 4.9 4.8-10.8 X10*3/uL Red Blood Count 4.97 4.20-5.50 X10*6/uL Hemoglobin 14.9 12.0-16.0 g/dl Hematocrit 44.8 37.0-47.0 % Mean Corpuscular Volume 90.1 80.0-98.0 fL Mean Corpuscular Hemoglobin 30.0 27.0-33.0 pg Mean Corpuscular HGB Conc 33.3 31.0-35.0 g/dl Red Cell Distribution Width 13.7 11.0-16.0 % Platelet Count 277 160-400 X10*3/uL Mean Platelet Volume 9.5 9.4-12.3 fL Neutrophils Percent Auto 50.1 45-73 % Imm Gran Pct Auto 0.4 0.0-0.4 % Lymphocytes Percent Auto 36.7 20-40 % Monocytes Percent Auto 9.6 2-11 % Eosinophils Percent Auto 2.4 0-4 % Basophils Percent Auto 0.8 0-2 % NRBC Pct Auto 0.0 0.0-0.2 /100WBC Neutrophils Absolute Auto 2.5 2.0-8.3 x10*3/u L Imm Gran Abs Auto 0.02 0.00-0.03 X10*3/uL Lymphocytes Absolute Auto 1.8 1.2-4.9 X10*3/u L Monocytes Absolute Auto 0.5 0.1-1.2 X10*3/uL Eosinophils Absolute Auto 0.1 0.0-0.4 X10*3/u L Basophils Absolute Auto 0.0 0.0-0.2 X10*3/uL NRBC Abs Auto 0.000 0.0-0.012 X10*3/uL Prothrombin Time INR Reviewed date:06/26/2024 08:48:49 AM Interpretation: Performing Lab:[facility], [address] [place] [phone] Notes/Report: Prothrombin Time 20.6 10.9-12.4 SEC INTERNATIONAL NORM RATIO 1.8 0.9-1.1 INTERNATIONAL NORMALIZED RATIO (INR) REFERENCE RANGES Reference Range For patients not on anticoagulant therapy: 0.9 - 1.1 INR ranges for oral anticoagulant therapy: For prevention and treatment of venous thrombosis and pulmonary embolism: 2.0 - 3.0 For acute myocardial infarction with aspirin therapy: 2.0 - 3.0 For acute myocardial infarction without aspirin therapy: 3.0 - 4.0 For patients with mechanical prosthetic heart valves: 2.5 - 3.5 Comprehensive [place]. Panel Fa st Reviewed date:06/25/2024 05:23:08 PM Interpretation: Performing Lab:[facility], [address] [place] [phone] Notes/Report: Sodium 140 135-145 mmol/L Potassium 5.1 3.3-5.1 mmol/L Slight Hemolysis.Interpret result with caution. Chloride 108 96-108 mmol/L Carbon Dioxide 27 22-29 mmol/L Anion Gap 10 12-20 Blood Urea Nitrogen 10 9-16 mg/dL Creatinine 0.82 0.5-1.4 mg/dL Estimated Glomerular Filt Rate > 60 Chronic Kidney Disease: Estimated GFR < 60 mL/min/1.73m2 Severe Kidney Disease: Estimated GFR < 15 mL/min/1.73m2 Glucose Fasting 98 60-99 mg/dL Calcium 10.4 8.4-10.2 mg/dL Bilirubin Total 0.5 0.0-1.0 mg/dL Aspartate Amino Transferase 40 5-31 U/L Slight Hemolysis.Interpret result with caution. Alanine Aminotransferase 33 0-31 U/L Total Protein 7.3 6.5-8.0 g/dL Albumin Level 4.3 3.5-5.0 g/dL Alkaline Phosphatase 92 39-117 U/L Lipid Panel Reviewed date:06/25/2024 05:18:07 PM Interpretation: Performing Lab:[facility], [address] [place] [phone] Notes/Report: Triglycerides 176 <150 mg/dL Desirable Triglyceride: less than 150 mg/dL Borderline High Triglyceride 150-199 mg/dL High Triglyceride: 200-499 mg/dL Very High Triglyceride: greater than or equal to 5OO mg/dL Cholesterol 158 <200 mg/dL Desirable Cholesterol: less than 200 mg/dL Borderline High Cholesterol: 200-239 mg/dL High Cholesterol: greater than 239 mg/dL LDL Cholesterol Calculated 83 <100 mg/dL Desirable LDL: less than 100 mg/dL Near Optimal/Above Optimal LDL: 110-129 mg/dL Borderline High LDL: 130-159 mg/dL High LDL: 160-189 mg/dL Very High LDL: greater than or equal to 190 mg/dL HDL Cholesterol 40 >40 mg/dL Desirable HDL: greater than 40 mg/dL Note: This HDL assay may give artificially low results in patients with liver disease. UA ClnCatch+Micro w/rflx Cul t Reviewed date:06/25/2024 05:29:45 PM Interpretation: Performing Lab:[facility], [address] [place] [phone] Notes/Report: Urine, Clean Catch Color Urine Yellow Appearance Urine Clear PH 7.0 5.0-9.0 Glucose Urine UA Negative Negative mg/dL Urine Blood Negative Negative Specific [place] - Urine 1.015 1.005-1.025 Urine Protein Negative Neg-Trace mg/dL Urine Ketones Negative Negative mg/dL Nitrite Urine Negative Negative Leukocyte Esterase Urine Large (3+) Negative RBC Urine 0-2 0-2 /HPF WBC Urine 21-50 0-5 /HPF Squamous Epithelial Cell Urine 6-10 0-2 /HPF Bacteria Urine None Seen None Seen Hyaline Casts Urine 0-2 0-2 /LPF REASON FOR REFERRAL No Information MEDICATIONS Medication SIG (Take, Route, Frequency, Duration) Notes Start Date End Date Status Biotin 2.5 MG 1 capsule Orally Onc e a day for 30 day(s) Active Ventolin HFA 108 (90 Base) MCG/ACT 2 [...] BY MOUTH EVERY DAY for 90 Active IMMUNIZATIONS Vaccine Route Administration Date Status Comme nts Flu Vaccine Unknown 04/15/2011 Administered Flu Vaccine Unknown 06/22/2012 Administered Fluarix Quadrivalent IM Intramuscular 04/23/2014 Administe red Fluarix Quadrivalent IM Intramuscular 04/20/2016 Administe red Fluarix Quadrivalent Unknown 05/23/2018 Administered CV S Fluarix Quadrivalent IM Intramuscular 04/12/2019 Administe red PPSV23 (Pnemovax) IM Intramuscular 05/22/2019 Administered Fluarix Quadrivalent Unknown 03/25/2020 Administered CV S Prevnar 13 IM Intramuscular 06/02/2020 Administered Covid Vaccine Unknown 10/25/2020 Administered Pfizer CV S Covid Vaccine Unknown 11/17/2020 Administered Pfizer Fluarix Quadrivalent Unknown 05/06/2021 Administered CV S SARS-COV-2 Pfizer Unknown 06/01/2021 Administered SARS-COV-2 Pfizer Unknown 05/24/2022 Administered SOCIAL HISTORY Tobacco Use: Social History Observation [...] W/U Status Risk SNOMED Code Notes Problem Malignant neoplasm of left kidney, except renal pelvis (C64.2) Active confirmed 893552384 Problem Hypercalcemia (E83.52) Active confirmed 38165633 Problem 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80) Active confirmed 191805065 Problem Mild intermittent asthmatic bronchitis with acute exacerbation (J45.21) Active confirmed 620355062 Problem History of renal cell carcinoma (Z85.528) Active confirmed 235072574 VITAL SIGNS Blood pressure diastolic 58 mm Hg 07/02/2024 lory ght is up 2 pounds since Height 66 in 07/02/2024 weight is up 2 pounds since Blood pressure systolic 142 mm Hg 07/02/2024 weig ht is up 2 pounds since Weight 152 lbs 07/02/2024 weight is up 2 pounds since BMI 24.53 kg/m2 07/02/2024 weight is up 2 pounds since Encounters Encounter Location Date Provider Diagnosis Jake Ware MD [address] [place] [id number] 01/24/2024 Jake Ware extermination inspector current us e of anticoagulant therapy Z79.01 ; Chronic cough R05.3 and 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 Jake Ware MD [address] [place] [address] [id number] 07/02/2024 Jake Ware Panic attacks F41.0 ; History of breast cancer Z85.3 ; 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 ; Malignant neoplasm of left kidney, except renal pelvis C64.2 ; Hypercalcemia E83.52 and Depression screening Z13.31 Jake Ware MD [address] [place] [address] Drive [address] [place] [address] [id number] 06/25/2024 Jake Ware Hypercholesteremia E 78.00 ; extermination inspector current use of anticoagulant therapy Z79.01 and 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 Jake Ware MD [address] [place] [address] [id number] 12/13/2023 Jake Ware Hypercholesteremia E 78.00 ; 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 and prison current use of anticoagulant therapy Z79.01 Jake Ware MD [address] [place] [address] [id number] 11/08/2023 Jake Ware extermination inspector current us e of anticoagulant therapy Z79.01 and 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 Jake Ware MD [address] [place] [address] [id number] 03/20/2024 Jake Ware Embolism and thrombo sis of renal vein I82.3 and extermination inspector current use of anticoagulant therapy Z79.01 Jake Ware MD [address] [place] [address] [id number] 04/03/2024 Jake Ware extermination inspector current us e of anticoagulant therapy Z79.01 Jake Ware MD [address] [place] [address] [id number] 07/20/2024 Jake Ware extermination inspector current us e of anticoagulant therapy Z79.01 and 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 Jake Ware MD [address] [place] [address] [id number] 03/12/2024 Jake Ware Embolism and thrombo sis of renal vein I82.3 ; extermination inspector current use of anticoagulant therapy Z79.01 ; Chronic cough R05.3 and Pulmonary nodule R91.1 Jake Ware MD [address] [place] [address] [id number] 11/04/2023 Jake Ware Panic attacks F41.0 Jake Ware MD [address] [place] [address] [id number] 01/02/2024 Jake Ware Cough R05.9 Jake Ware MD [address] [place] [address] [id number] 01/06/2024 Jake Ware MD [address] [place] [address] [id number] 04/13/2024 Jake Ware MD [address] [place] [address] [id number] 12/29/2023 Jake Ware Mild intermittent asthmatic bronchitis with acute exacerbation J45.21 Jake Ware MD [address] [place] [address] [id number] 01/09/2024 Jake Ware Pulmonary nodules R9 1.8 and Chronic cough R05.3 ASSESSMENTS Encounter Date Diagnosis Assessment Notes Treatment Notes Treatment Clinical Notes 01/24/2024 extermination inspector current us e of anticoagulant therapy (ICD-10 - Z79.01) 01/24/2024 Chronic cough (ICD-1 0 - R05.3) need the cat scans of lung and throat and chest xray results from [facility] 01/05/24/ request will be sent for records 07/02/2024 History of breast cancer (ICD-10 - Z85.3) followed by [facility] 07/02/2024 Panic attacks (ICD-1 0 - F41.0) takes ativan occasionally, will continue current regiment 06/25/2024 extermination inspector current us e of anticoagulant therapy (ICD-10 - Z79.01) 06/25/2024 Hypercholesteremia (ICD-10 - E78.00) 12/13/2023 Embolism and thrombo sis of renal vein (ICD-10 - I82.3) 12/13/2023 Hypercholesteremia (ICD-10 - E78.00) 11/08/2023 Embolism and thrombo sis of renal vein (ICD-10 - I82.3) 11/08/2023 prison current us e of anticoagulant therapy (ICD-10 - Z79.01) 03/20/2024 Embolism and thrombo sis of renal vein (ICD-10 - I82.3) 03/20/2024 extermination inspector current us e of anticoagulant therapy (ICD-10 - Z79.01) 04/03/2024 prison current us e of anticoagulant therapy (ICD-10 - Z79.01) 07/20/2024 prison current us e of anticoagulant therapy (ICD-10 - Z79.01) order faxed to [facility]. [phone] 03/12/2024 Embolism and thrombo sis of renal vein (ICD-10 - I82.3) pending lab, will continue to monitor 03/12/2024 prison current us e of anticoagulant therapy (ICD-10 - Z79.01) 11/04/2023 Panic attacks (ICD-1 0 - F41.0) 12/29/2023 Mild intermittent asthmatic bronchitis with acute exacerbation (ICD-10 - J45.21) patient verbalized understanding of medications and directions for use 01/09/2024 Pulmonary nodules (ICD-10 - R91.8) need copy of the lung ct from [facility] explained what should be done. she is going to send the ct to [place] to her oncologist before deciding what to do for follow up/ called [facility] for [facility] scan lung report 01/09/2024 Chronic cough (ICD-1 0 - R05.3) patient verbalized understanding of medicationnd directions for use 01/24/2024 Embolism and thrombo sis of renal vein (ICD-10 - I82.3) 07/02/2024 Embolism and thrombo sis of renal vein (ICD-10 - I82.3) remains on anticoagulant, will continue current regiment 06/25/2024 Embolism and thrombo sis of renal vein (ICD-10 - I82.3) 12/13/2023 extermination inspector current us e of anticoagulant therapy (ICD-10 - Z79.01) 07/20/2024 Embolism and thrombo sis of renal vein (ICD-10 - I82.3) 03/12/2024 Chronic cough (ICD-1 0 - R05.3) need notes from dr haines/ requested will be sent 01/02/2024 Cough (ICD-10 - R05.9) 07/02/2024 Malignant neoplasm o f left kidney, except renal pelvis (ICD-10 - C64.2) has been many years 03/12/2024 Pulmonary nodule (ICD-10 - R91.1) need repeat ct chest.. done at [facility]/ order printed and put in future folder 07/02/2024 Hypercalcemia (ICD-1 0 - E83.52) only minimally elevated. repeat ca with next blood draw, will continue to monitor 07/02/2024 Depression screening (ICD-10 - Z13.31) negative screen PLAN OF TREATMENT Pending Test Test Name Order Date Electrocardiogram (EKG) 08/31/2016 URINALYSIS, COMPLETE 11/26/2011 MICROALBUMIN, RANDOM 11/19/2011 URINALYSIS (UA) 11/19/2011 PAP SMEAR (THIN PREP) 03/22/2016 Prothrombin Time INR 07/20/2024 US renal BI 06/05/2021 Future Test Test Name Order Date MAMMOGRAM DIGITAL UNILATERAL SUSAN RT 02/23 BONE DENSITY DEXA 09/24/2019 CT chest wo con 05/12/2024 Next Appt Details Provider Name:Jake Mark ier, 06/28/2025 08:00:00 AM, [address] [facility], [address], [place], [place], [phone], Provider Name:Jake Mark ier, 07/05/2025 01:00:00 PM, [address] [facility], [address], [place], [place], [id number], Insurance Providers Payer Name Payer Address Payer Phone Subscriber Number Group Number Insured Name Patient Relationship to Insured Coverage Start Date Coverage End Date MEDICARE NHIC REJI [address] [place] [address] [id number] Ruth Ceballos Self - patient is the insured MED[employer] OF [facility] [address] [place] [phone] [id number] Ruth Ceballos Self - patient is the insured MEDICAL (GENERAL) HISTORY Medical History History ICD Code colonoscopy [address] Carl Serna - repeat 5 years; Refused colonoscopy in 2018 because she got sick in 2012. Won't have : colonoscopy 11/17/21 repeat due in 10 years. Pap Smear - 08/2012; mammogram 12/2012 in [place] 2016 done yearly in [place] Bone density done 09/13/2017 - needs repe at in 2 years
--- OUTSIDE RECORDS SUMMARY | 2024-07-20 12:10 | XMS_ITS | Patient Health Record ---
Author Organization [facility] Address [address] [place] [address] Care Team Providers Care Clinical Transformation Specialist Name Role Phone Jeanie CARVALHO, Jake Primary Care Provider Darian Denny Jr Unavailable ALLERGIES Allergen (clinical drug ingredient) Drug/Non Drug Allergy documented on EMR Reaction Allergy Type Onset Date Status Penicillin Unknown Drug Allergy Active IV contrast Dye ? (uncoded) Unknown Allergy Active Shellfish (FN) shell fish (uncoded) Unknown Allergy Active REASON FOR REFERRAL No Information MEDICATIONS Medication SIG (Take, Route, Frequency, Duration) Notes Start Date End Date Status Atorvastatin Calcium 20 MG 1 tablet Orally Once a day for 30 day(s) Active Coumadin 6mg Active LORazepam 1mg Active Calcium 1200mg Activ e ZyrTEC Active Vitamin D 1600mg Act juli MiraLax (colon prep) 17 GM/SCOOP mixed with Gatorade or Crystal Light Orally begin at 5:00 p.m. the day before the procedure for 1 day 10/22/2021 Active Valtrex 1 GM 1 tablet Orally Once a day for 10 day(s) as needed Active IMMUNIZATIONS Vaccine Route Administration Date Status Comme nts Influenza Unknown 05/13/2021 Administered SOCIAL HISTORY Sex Assigned At : Social History Observation Description Sex Assigned At Unknown PROBLEMS Problem Type ICD Code Onset Dates Problem Status W/U Status Risk SNOMED Code Notes Problem Colon cancer screening (Z12.11) Active confirmed 617929218 Problem termite exterminator (current) use of anticoagulants (Z79.01) Active confirmed 590494972 Problem Personal history of colonic polyps (Z86.010) Active confirmed 163988236 PLAN OF TREATMENT Future Test Test Name Order Date COLONOSCOPY 08/11/2012 COLONOSCOPY 09/28/2021 COLONOSCOPY 10/22/2021 Insurance Providers Payer Name Payer Address Payer Phone Subscriber Number Group Number Insured Name Patient Relationship to Insured Coverage Start Date Coverage End Date MEDICARE OF [place] [address] [place]ER [id number] [phone] [id number] DOROTHY FREEMAN Self - patient is the insured MED[employer] ATTN CLAIMS [address] [place] [address] [phone] [id number] DOROTHY FREEMAN Self - patient is the insured MEDICAL (GENERAL) HISTORY Medical History History ICD Code DVT renal cell carcinoma breast cancer Elevated cholesterol Osteopenia Panic attacks Surgical History Surgery Date(Month/Year) right nephrectomy mastectomy, left tubal ligation IVC filter placement
--- OUTSIDE RECORDS SUMMARY | 2024-07-20 12:10 | XMS_ITS ---
Author Organization Jake Ware MD Address [address] [place], [place] [phone] Care Team Providers Care Top And Trim Worker Name Role Phone Jake Ware Primary Care Provider RESULTS Component Value Reference Range Notes Complete Blood Count Auto Di ff Reviewed date:06/25/2024 05:18:31 PM Interpretation: Performing Lab:[facility], [address] [place] [phone] Notes/Report: White Blood Count 4.9 4.8-10.8 X10*3/uL [...] INR Reviewed date:06/26/2024 08:48:49 AM Interpretation: Performing Lab:[facility], [address] [place] [phone] Notes/Report: Prothrombin Time 20.6 10.9-12.4 SEC INTERNATIONAL [...] prosthetic heart valves: 2.5 - 3.[address] Pierre[address] Panel Fa st Reviewed date:06/25/2024 05:23:08 PM Interpretation: Performing Lab:[facility], [address] [place] [phone] Notes/Report: Sodium 140 135-145 mmol/L Potassium 5.1 [...] Panel Reviewed date:06/25/2024 05:18:07 PM Interpretation: Performing Lab:[facility], [address] [place] [phone] Notes/Report: Triglycerides 176 <150 mg/dL Desirable Triglyceride: [...] t Reviewed date:06/25/2024 05:29:45 PM Interpretation: Performing Lab:[facility], [address] [place] [phone] Notes/Report: Urine, Clean Catch Color Urine Yellow Appearance Urine Clear PH 7.0 5.0-9.0 Glucose Urine UA Negative Negative mg/dL Urine Blood Negative Negative Specific [place] - Urine 1.015 1.005-1.025 Urine Protein Negative Neg-Trace mg/dL Urine Ketones Negative Negative mg/dL Nitrite Urine Negative Negative Leukocyte Esterase Urine Large (3+) Negative RBC Urine 0-2 0-2 /HPF WBC Urine 21-50 0-5 /HPF Squamous Epithelial Cell Urine 6-10 0-2 /HPF Bacteria Urine None Seen None Seen Hyaline Casts Urine 0-2 0-2 /LPF REASON FOR VISIT FASTING LABS Encounters Encounter Location Date Provider Diagnosis Jake Ware MD [address] [place] [address] Drive [address] [place], [place] [phone] 06/25/2024 Jake Ware Hypercholesteremia E 78.00 ; senior care current use of anticoagulant therapy Z79.01 and 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
[2024-07-20 14:23] LABS: INTERNATIONAL NORM RATIO 1.9 (0.9-1.1); Prothrombin Time 21.7 SEC (10.9-12.4)
== END 2024-07-20 12:05 | disposition home or self-care (01) ==
LOC: HO.WFDLDS 12:04
PROVIDERS: Visit Provider Internal Medicine
DX: I82.3 Embolism and thrombosis of renal vein (principal); Z79.01 Long term (current) use of anticoagulants
CPT/HCPCS: 36415; 85610

== ENCOUNTER 2024-08-07 11:02 | Outpatient (REF) | payer MEDICARE, SELFPAY ==
[2024-08-07 11:16] LABS: INTERNATIONAL NORM RATIO 2.2 (0.9-1.1); Prothrombin Time 25.4 SEC (10.9-12.4)
--- OUTSIDE RECORDS SUMMARY | 2024-08-07 13:13 | XMS_ITS | Data Portability ---
Author Organization [place] - [facility], Allergy Address [address] [facility] [address] [place] [address] Care Team Providers Care Livestock Slaughterer Name Role Phone DANIEL FISHER Primary Care Provider [phone] Assessment Encounter Date Assessment Date Assessment LastModified by Organization Details LastModified Time 02/22/2024 02/22/2024 Patient describes many symptoms highly suggestive of irritable larynx syndrome have developed after her bronchitis and use of an inhaler in December. My fiberoptic laryngoscopy was benign. She denies reflux unless she has spicy food. Recommend consultation with speech pathology as there are often exercises that may help her better control her cough spasms dplosky Not available 02/22/2024 11:02:39 Plan of Treatment Reminders Order Date Submit Date Provider Last Modified By Organization Details Last Modified Time Details Appointments None recorded . Lab None recorded . Referral speech therapy referral - Appt 03/09 @ 12pm 2023 [facility], [address] [place] [address], [address], 11:19:50 Procedures None recorded . Surgeries None recorded . Imaging None recorded . Medication Orders None recorded . Patient TargetsNo targets recorded. Patient InstructionsNo instructions recorded. Reason for Referral Appt 03/09 @ 12pm Referring Physician: Everett Ca, Otolaryngology, Encounter Date: 02/22/2024 Problems Name Problem SNOMED Code Status Onset Date Resolution Date Notes Provider Name and Address Organization Details Recorded Time Chronic cough 96151486 Active EVERETT CA MD [address] [facility], [facility], [address] , [facility] 02/21/2024 17:33:48 Problem Notes None recorded. Procedures Surgical History Date Name Laterality Status Provider Name and Address Organization Details Recorded Time FOL_DP completed EVERETT CA MD [address] [place] [address], [phone], [facility] - [facility] 02/21/2024 17:33:39 7 excision of left breast completed Sneha Flynn [facility] 02/22/2024 10:27:30 Imaging Results None recorded. Procedure Notes None recorded. Medical Equipment None Reported. Allergies Allergen ID Allergen Name Allergen Category Reaction Reaction Severity Criticality Documentation Date Start Date Code Code System Note Provider Name and Address Organization Details Recorded Time 220707 Medicinal product containin g penicilli n and acting as antibacte rial agent (product) medicatio n itching Not available Not available 02/22/2024 94708 05 SNOMED Sneha sánchez [facility] 4 10:25:05 351124 shellfish derived food,medi cation itching Not available Not available 02/22/2024 Sneha sánchez [facility] 4 10:25:22 Medications Name Sig Start Date Stop Date Status Note LastModified by Organization Details LastModified Time prednisone 10 mg tablet PLEASE SEE ATTACHED FOR DETAILED DIRECTION S 02/21 completed Not Available Not Available Not Available atorvastati n 20 mg tablet TAKE 1 TABLET BY MOUTH EVERY DAY active Not Available Not Available No t Available azithromyci n 250 mg tablet TAKE 2 TABLETS BY MOUTH TODAY, THEN TAKE 1 TABLET DAILY FOR 4 DAYS DIRECTED 02/21 completed Not Available Not Available Not Available valacyclovi r 500 mg tablet TAKE 1 TABLET (500 MG TOTAL) BY MOUTH DAILY. 02/21 completed Not Available Not Available Not Available warfarin 2 mg tablet TAKE 3 TABLETS BY MOUTH EVERY DAY active Not Available Not Available No t Available lorazepam 1 mg tablet TAKE 1 TABLET BY MOUTH EVERY DAY FOR 30 DAYS active Not Available Not Available No t Available albuterol sulfate HFA 90 mcg/actuati on aerosol inhaler INHALE 1 PUFF INTO THE LUNGS EVERY 4 HOURS NEEDED active Not Available Not Available No t Available Vitamin C active Not Available Not Christin ilable Not Available calcium active Not Available Not Avail able Not Available zinc active Not Available Not Availa ble Not Available Vitamin D active Not Available Not Christin ilable Not Available Vitals Date Recorded Body height Body mass index (BMI) Body weight Provider Name and Address Organization Details Last Updated DateTime 02/22/2024 167.64 cm 23.1 kg/m2 29496.71 g Sneha Flynn [place] - [facility] 02/22/2024 10:31:40 Social History None recorded. Functional Status None recorded. Mental Status None recorded. Family History Nothing Reported. Medical History Condition Response Emphysema Y Anxiety Y Gynecological HistoryNo gynecological history recorded. Obstetrics History GPAL:G 0 P 0 0 0 0 Past Encounters Encounter ID Performer Location Encounter Start Date Encounter Closed Date Diagnosis/Indication Diagnosis SNOMED-CT Code Diagnosis ICD10 Code Diagnosis Note [id number] EVERETT CA MD [facility] [address] [address] 02/22/2024 09:43:49 02/22/2024 11:04:16 Chronic cough 81131170 R05.3 Health Concerns Section Related Observation LastModified by Organization Detai ls LastModified Time None Recorded Concern Status LastModified by Organization Details LastModified Time None Recorded Advance Directives Directive None Recorded Payers Encounter Date Sequence Insurance Name Policy Number Policy Bond Covered Member ID Bond Member ID Guarantor Name 02/22/2024 1 [place] [employer] [facility] [id number] [facility] 02/22/2024 2 [place] [id number] [facility] [id number] [facility] Notes Date Note Type Note Provider Name and Address Organization Details Recorded Time 02/22/2024 text/html coughonset of bronchitis in Decemberinitially trial of zithromax, albuterol inhaler 01/05/24 ct scan of neck Leone - normal01/05/24 CXR Leone - right basilar atelectasis recalls any pressure on outside of neck muscles would trigger cough, also can be triggered with small crumb in throat has been able to adapt to her triggers but they are not resolvedvoice mild scratchy but general normal pmhx -1996 right renal cell ca with thrombosis treated with [id number] breast ca treated with mastectomy, chemo EVERETT CA MD [address] [place] [address], [place], [address], [place] - [facility] 02/22/2024 11:03:00 OBGyn Episode No OBEpisode recorded.
--- OUTSIDE RECORDS SUMMARY | 2024-08-07 13:13 | XMS_ITS ---
Author Organization Jake Ware MD Address [address] [place], [place] [phone] Care Team Providers Care Video Tape Transferrer Name Role Phone Jake Ware Primary Care Provider [phone] RESULTS Component Value Reference Range Notes Prothrombin Time INR (Not ye t reviewed by provider) Interpretation: Performing Lab:[facility], [address] [place] [phone] Notes/Report: Prothrombin Time 25.4 10.9-12.4 SEC INTERNATIONAL NORM RATIO 2.2 0.9-1.1 INTERNATIONAL NORMALIZED RATIO (INR) REFERENCE RANGES [...] mechanical prosthetic heart valves: 2.5 - 3.5 REASON FOR VISIT INR Encounters Encounter Location Date Provider Diagnosis Jake Ware MD [address] [facility] [address] [place] [phone] 08/07/2024 Jake Ware skilled nursing current us e of anticoagulant therapy Z79.01 ASSESSMENTS Encounter Date Diagnosis Assessment Notes Treatment Notes Treatment Clinical Notes 08/07/2024 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
--- OUTSIDE RECORDS SUMMARY | 2024-08-07 13:13 | XMS_ITS ---
Author Organization Jake Ware MD Address [address] [place] [phone] Care Team Providers Care Arranging Funeral Director Name Role Phone Jake Ware Primary Care Provider RESULTS Component Value Reference Range Notes Prothrombin Time INR Reviewed date:07/20/2024 03:13:00 PM Interpretation: Performing Lab:[facility], [address] [place] [phone] Notes/Report: Prothrombin Time 21.7 10.9-12.4 SEC INTERNATIONAL NORM RATIO 1.9 0.9-1.1 INTERNATIONAL NORMALIZED RATIO (INR) REFERENCE RANGES [...] Date Provider Diagnosis Jake Ware MD [address] [place] [phone] 07/20/2024 Jake Ware residential current us e of anticoagulant therapy Z79.01 and 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 [phone] Next Appt Details Provider Name:Jake ortega, 06/28/2025 08:00:00 AM, [address] [place] [address], [address], [place], [phone], Provider Name:Jake ortega, 07/05/2025 01:00:00 PM, [address] [place] [address], [address], [place], [phone],
--- OUTSIDE RECORDS SUMMARY | 2024-08-07 13:14 | XMS_ITS | Patient Health Record ---
Author Organization Jake Ware MD Address [address] [place], [place] [id number] Care Team Providers Care Talent Partner Name Role Phone Jake Ware Primary Care Provider [phone] ALLERGIES Allergen (clinical drug ingredient) Drug/Non Drug Allergy documented on EMR Reaction Allergy Type Onset Date Status penicillin V Penicillin V Potassium rash Drug Allergy Active Contrast Dye shell fish (uncoded) swelling Allergy Active RESULTS Component Value Reference Range Notes Prothrombin Time INR Reviewed date:11/08/2023 11:45:34 AM Interpretation: Performing Lab:[facility], [address] [place] [phone] Notes/Report: Prothrombin Time 25.6 11.1-13.3 SEC INTERNATIONAL [...] INR Reviewed date:12/13/2023 04:32:42 PM Interpretation: Performing Lab:[address] [phone] Notes/Report: Prothrombin Time 21.3 11.1-13.3 SEC INTERNATIONAL [...] Panel Reviewed date:12/13/2023 04:32:19 PM Interpretation: Performing Lab:[facility], [address] [place] [phone] Notes/Report: Bilirubin Total 0.6 0.0-1.0 mg/dL Bilirubin Direct 0.2 0.0-0.5 mg/dL Aspartate Amino Transferase 28 5-31 U/L Alanine Aminotransferase 30 0-31 U/L Total Protein 7.3 6.5-8.0 g/dL Albumin Level 4.2 3.5-5.0 g/dL Alkaline Phosphatase 100 39-117 U/L Lipid Panel with Reflex Reviewed date:12/13/2023 04:32:31 PM Interpretation: Performing Lab:[facility], [address] [place] [phone] Notes/Report: Triglycerides 87 <150 mg/dL Desirable Triglyceride: [...] AM Interpretation:see back 01-24-2024 Performing Lab: Notes/Report: [address] [address] XRay Report Signed Patient: Ruth Ceballos MR#: [id number] : 1955 Acct:[id number] Age/Sex: 68 / F ADM Date: 01/03/24 Loc: [facility] Attending Dr: Jake Ware MD Ordering Physician: Jake Ware MD Date of Service: 01/03/24 Procedure(s): XR chest 2V Accession Number(s): [id number] cc: Jake Ware MD EXAMINATION: XR CHEST [...] in OV> 01/16/24 1027 DD/ 1019 TD/TT: Inspector Hairspring Truing: Prothrombin Time INR Reviewed date:01/24/2024 12:30:50 PM Interpretation: Performing Lab:[address] [phone] Notes/Report: Prothrombin Time 14.9 11.1-13.3 SEC INTERNATIONAL [...] INR Reviewed date:03/12/2024 12:45:00 PM Interpretation: Performing Lab:[address] [place] [address] Notes/Report: Prothrombin Time 19.2 11.1-13.3 SEC INTERNATIONAL [...] INR Reviewed date:03/20/2024 12:05:48 PM Interpretation: Performing Lab:[address] [phone] Notes/Report: Prothrombin Time 24.3 11.1-13.3 SEC INTERNATIONAL [...] INR Reviewed date:04/03/2024 02:46:36 PM Interpretation: Performing Lab:[address] [address] Notes/Report: Prothrombin Time 29.9 11.1-13.3 SEC INTERNATIONAL [...] Culture Reviewed date:06/26/2024 12:44:43 PM Interpretation: Performing Lab:[facility] [address], [place] [address] Notes/Report: O:STRAGA Strep agalactiae (Gr p B) Urine Culture Quant Urine Culture 50,000 to 100,000 cfu/mL Urine Culture Susc N/A Urine Culture Susceptibility not routinely performed on this isolate. Complete Blood Count Auto Di ff Reviewed date:06/25/2024 05:18:31 PM Interpretation: Performing Lab:[facility], [address] [place] [phone] Notes/Report: White Blood Count 4.9 4.8-10.8 X10*3/uL [...] INR Reviewed date:06/26/2024 08:48:49 AM Interpretation: Performing Lab:[facility], [address] [place] [address] Notes/Report: Prothrombin Time 20.6 10.9-12.4 SEC INTERNATIONAL [...] prosthetic heart valves: 2.5 - 3.5 Comprehensive [place]. Panel Fa st Reviewed date:06/25/2024 05:23:08 PM Interpretation: Performing Lab:[facility], [address] [place] [phone] Notes/Report: Sodium 140 135-145 mmol/L Potassium 5.1 [...] Panel Reviewed date:06/25/2024 05:18:07 PM Interpretation: Performing Lab:[facility], [address] [place] [phone] Notes/Report: Triglycerides 176 <150 mg/dL Desirable Triglyceride: [...] t Reviewed date:06/25/2024 05:29:45 PM Interpretation: Performing Lab:[facility], [address] [place] [phone] Notes/Report: Urine, Clean Catch Color Urine Yellow Appearance Urine Clear PH 7.0 5.0-9.0 Glucose Urine UA Negative Negative mg/dL Urine Blood Negative Negative Specific [place] - Urine 1.015 1.005-1.025 Urine Protein Negative Neg-Trace mg/dL Urine Ketones Negative Negative mg/dL Nitrite Urine Negative Negative Leukocyte Esterase Urine Large (3+) Negative RBC Urine 0-2 0-2 /HPF WBC Urine 21-50 0-5 /HPF Squamous Epithelial Cell Urine 6-10 0-2 /HPF Bacteria Urine None Seen None Seen Hyaline Casts Urine 0-2 0-2 /LPF Prothrombin Time INR Reviewed date:07/20/2024 03:13:00 PM Interpretation: Performing Lab:[facility], [address] [place] [phone] Notes/Report: Prothrombin Time 21.7 10.9-12.4 SEC INTERNATIONAL [...] valves: 2.5 - 3.5 Prothrombin Time INR (Not ye t reviewed by provider) Interpretation: Performing Lab:[facility], [address] [place] [phone] Notes/Report: Prothrombin Time 25.4 10.9-12.4 SEC INTERNATIONAL [...] heart valves: 2.5 - 3.5 REASON FOR REFERRAL No Information MEDICATIONS Medication [...] kidney, except renal pelvis (C64.2) Active confirmed 185338785 Problem Hypercalcemia (E83.52) Active confirmed 31588631 Problem 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) Active confirmed 133281323 Problem Tubular adenoma of colon (D12.6) Active confirmed 460998552 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.01) Active confirmed Long-term c urrent use of anticoagulant (901835754) Problem History of breast cancer (Z85.3) Active confirmed 881183772 Problem Panic attacks (F41.0) Active confirmed 628391072 Problem Pulmonary nodule (R91.1) Active confirmed 328169281 Problem Dry eyes (H04.123) Active confirmed Dry eyes (320057018) Problem Hypercholesteremia (E78.00) Active confirmed hypercholestero lemia (disorder) (62698445) Problem Osteopenia determined by x-ray (M85.80) Active confirmed 104539815 Problem Mild intermittent asthmatic bronchitis with acute exacerbation (J45.21) Active confirmed 629924205 Problem History of renal cell carcinoma (Z85.528) Active confirmed 264552274 VITAL SIGNS Blood pressure diastolic 58 mm [...] Jake Ware MD [address] [place] [id number] 01/24/2024 Jake Ware [facility]CI current us e of anticoagulant therapy Z79.01 ; Chronic cough R05.3 and 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 Jake Ware MD [address] [place] [id number] 07/02/2024 Jake Ware Panic attacks F41.0 ; History of breast cancer Z85.3 ; 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 ; Malignant neoplasm of left kidney, except renal pelvis C64.2 ; Hypercalcemia E83.52 and Depression screening Z13.31 Jake Ware MD [address] [place] [id number] 06/25/2024 Jake Ware Hypercholesteremia E 78.00 ; 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 and 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 Jake Ware MD [address] [place] [id number] 12/13/2023 Jake Ware Hypercholesteremia E 78.00 ; 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 and 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 Jake Ware MD [address] [place] [address] [id number] 11/08/2023 Jake Ware [facility]CI current us e of anticoagulant therapy Z79.01 and 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 Jake aWre MD [address] [place] [address] [id number] 03/20/2024 Jake Ware Embolism and thrombo sis of renal vein I82.3 and 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 Jake Ware MD [address] [place] [address] [id number] 04/03/2024 Jake Ware [facility]CI current us e of anticoagulant therapy Z79.01 Jake Ware MD [address] [place] [address] [id number] 07/20/2024 Jake Ware [facility]CI current us e of anticoagulant therapy Z79.01 and 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 Jake Ware MD [address] [place] [address] [id number] 08/07/2024 Jake Ware 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 Z79.01 Jake Ware MD [address] [place] [id number] 03/12/2024 Jake Ware Embolism and thrombo sis of renal vein I82.3 ; 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 ; Chronic cough R05.3 and Pulmonary nodule R91.1 Jake Ware MD [address] [place] [address] [id number] 11/04/2023 Jake Ware Panic attacks F41.0 Jake Ware MD [address] [place] [address] [id number] 01/02/2024 Jake Ware Cough R05.9 Jake Ware MD [address] [place] [id number] 01/06/2024 Jake Ware MD [address] [place] [address] [id number] 04/13/2024 Jake Ware MD [address] [place] [address] [id number] 12/29/2023 Jake Ware Mild intermittent asthmatic bronchitis with acute exacerbation J45.21 Jake Ware MD [address] [place] [address] [id number] 01/09/2024 Jake Ware Pulmonary nodules R9 1.8 and Chronic cough R05.3 ASSESSMENTS Encounter Date Diagnosis Assessment Notes Treatment Notes Treatment Clinical Notes 01/24/2024 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 (ICD-10 - Z79.01) 01/24/2024 Chronic cough (ICD-1 0 - R05.3) need the cat scans of lung and throat and chest xray results from [facility] 01/05/24/ request will be sent for records 07/02/2024 History of breast cancer (ICD-10 - Z85.3) followed by [facility] 07/02/2024 Panic attacks (ICD-1 0 - F41.0) takes ativan occasionally, will continue current regiment 06/25/2024 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 (ICD-10 - Z79.01) 06/25/2024 Hypercholesteremia (ICD-10 - E78.00) 12/13/2023 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) 12/13/2023 [facility] current us e of anticoagulant therapy (ICD-10 [...] SMEAR (THIN PREP) 03/22/2016 Prothrombin Time INR 08/07/2024 US renal BI 06/05/2021 Future Test Test Name Order Date MAMMOGRAM DIGITAL UNILATERAL SUSAN RT 02/23 BONE DENSITY DEXA 09/24/2019 CT chest wo con 05/12/2024 Next Appt Details Provider Name:Jake ortega, 06/28/2025 08:00:00 AM, [address], [address], [place], [place], [phone], Provider Name:Jake Mark ier, 07/05/2025 01:00:00 PM, [address], [address], [place], [id number], Insurance Providers Payer Name Payer Address Payer Phone Subscriber Number Group Number Insured Name Patient Relationship to Insured Coverage Start Date Coverage End Date MEDICARE NHIC REJI [address] [place] [address] [id number] Ruth Ceballos Self - patient is the insured [employer] [place] [address] [place] [address] [id number] Ruth Ceballos Self - patient is the insured MEDICAL (GENERAL) HISTORY Medical History History ICD Code colonoscopy [address] Carl Serna - repeat 5 years; Refused colonoscopy in 2018 because she got sick in 2012. Won't have : colonoscopy 11/17/21 repeat due in 10 years. Pap Smear - 08/2012; mammogram 12/2012 in [place] 2016 done yearly in [place] Bone density done 09/13/2017 - needs repe at in 2 years
--- OUTSIDE RECORDS SUMMARY | 2024-08-07 13:14 | XMS_ITS ---
Author Organization Jake Ware MD Address [address] [place], [place] [phone] Care Team Providers Care Stone Decorator Name Role Phone Jake Ware Primary Care Provider [phone] ALLERGIES Allergen (clinical drug ingredient) Drug/Non Drug [...] Code Notes Problem Hypercalcemia (E83.52) Active confirmed 66024135 VITAL SIGNS BMI 24.53 kg/m2 07/02/2024 Blood pressure systolic 142 mm Hg 07/02/20 24 Blood pressure diastolic 58 mm Hg 024 Height 66 in 07/02/2024 Weight 152 lbs 07/02/2024 weight is up 2 pounds since Encounters Encounter Location Date Provider Diagnosis Jake Ware MD [address] [place] [address] [address] [place], [place] [id number] 07/02/2024 Jake Ware Panic attacks F41.0 ; [...] breast cancer (ICD-10 - Z85.3) followed by [facility] 07/02/2024 Embolism and thrombosis of renal vein [...] Name:Jake Mark ier, 06/28/2025 08:00:00 AM, [address] [facility], [address], [place], [place], [phone], Provider Name:Jake Mark ier, 07/05/2025 01:00:00 PM, [address] [facility], [address], [place], [place], [phone], Progress Notes * Examination Category Sub-Category Detail [...] cyanosi s, or edema BREASTS: done by enterprise systems architect RECTAL EXAM: done by enterprise systems architect FEMALE GENITOURINARY: done by enterprise systems architect ORAL CAVITY: mucosa moist History and Physical [...]
--- OUTSIDE RECORDS SUMMARY | 2024-08-07 13:14 | XMS_ITS | Patient Health Record ---
Author Organization [facility] Address [address] [place] [address] Care Team Providers Care Lead Generator Name Role Phone Jeanie CARVALHO, Jake Primary Care Provider Darian Denny Jr Unavailable [phone] ALLERGIES Allergen (clinical drug ingredient) Drug/Non Drug [...] Problem Colon cancer screening (Z12.11) Active confirmed 683101346 Problem termite renewal inspector (current) use of anticoagulants (Z79.01) Active confirmed 048901791 Problem Personal history of colonic polyps (Z86.010) Active confirmed 458965155 PLAN OF TREATMENT Future Test Test Name Order Date COLONOSCOPY 08/11/2012 COLONOSCOPY 09/28/2021 COLONOSCOPY 10/22/2021 Insurance Providers Payer Name Payer Address Payer Phone Subscriber Number Group Number Insured Name Patient Relationship to Insured Coverage Start Date Coverage End Date MEDICARE OF [place] [address] [place] [address] [id number] DOROTHY FREEMAN Self - patient is the insured MEDEX ATT[employer] CLAIMS [address] [place] [address] [phone] [id number] DOROTHY FREEMAN Self - patient is the insured MEDICAL (GENERAL) HISTORY Medical History History ICD Code DVT renal cell carcinoma breast cancer Elevated cholesterol Osteopenia Panic attacks Surgical History Surgery Date(Month/Year) right nephrectomy mastectomy, left tubal ligation IVC filter placement
== END 2024-08-07 11:03 | disposition home or self-care (01) ==
LOC: HO.LNP 11:02
PROVIDERS: Visit Provider Internal Medicine
DX: Z79.01 Long term (current) use of anticoagulants (principal)
CPT/HCPCS: 85610

== ENCOUNTER 2024-11-06 10:30 | Outpatient (REF) | payer MEDICARE, SELFPAY ==
[2024-11-06 10:48] LABS: INTERNATIONAL NORM RATIO 1.9 (0.9-1.1); Prothrombin Time 22.2 SEC (10.9-12.4)
--- OUTSIDE RECORDS SUMMARY | 2024-11-06 12:40 | XMS_ITS | Patient Health Record ---
Author Organization Jake Ware MD Address [address] [place], [place] [id number] Care Team Providers Care Clinical Social Work Therapist Name Role Phone Jake Ware Primary Care Provider Allergies Allergen (clinical drug ingredient) Drug/Non Drug Allergy documented on EMR Reaction Allergy Type Onset Date Status penicillin V Penicillin V Potassium rash Drug Allergy Active Contrast Dye shell fish (uncoded) swelling Allergy Active Results Component Value Reference Range Notes Prothrombin Time INR Reviewed date:11/08/2023 11:45:34 AM Interpretation: Performing Lab:[facility], [address] [place] [phone] Notes/Report: Prothrombin Time 25.6 11.1-13.3 SEC INTERNATIONAL [...] INR Reviewed date:12/13/2023 04:32:42 PM Interpretation: Performing Lab:[address] [phone] Notes/Report: Prothrombin Time 21.3 11.1-13.3 SEC INTERNATIONAL [...] Panel Reviewed date:12/13/2023 04:32:19 PM Interpretation: Performing Lab:[facility], [address] [place] [phone] Notes/Report: Bilirubin Total 0.6 0.0-1.0 mg/dL Bilirubin Direct 0.2 0.0-0.5 mg/dL Aspartate Amino Transferase 28 5-31 U/L Alanine Aminotransferase 30 0-31 U/L Total Protein 7.3 6.5-8.0 g/dL Albumin Level 4.2 3.5-5.0 g/dL Alkaline Phosphatase 100 39-117 U/L Lipid Panel with Reflex Reviewed date:12/13/2023 04:32:31 PM Interpretation: Performing Lab:[facility], [address] [place] [phone] Notes/Report: Triglycerides 87 <150 mg/dL Desirable Triglyceride: [...] low results in patients with liver disease. Prothrombin Time INR Reviewed date:03/20/2024 12:05:48 PM Interpretation: Performing Lab:[facility], [address] [place] [phone] Notes/Report: Prothrombin Time 24.3 11.1-13.3 SEC INTERNATIONAL [...] INR Reviewed date:04/03/2024 02:46:36 PM Interpretation: Performing Lab:[address] [phone] Notes/Report: Prothrombin Time 29.9 11.1-13.3 SEC INTERNATIONAL [...] mechanical prosthetic heart valves: 2.5 - 3.5 Complete Blood Count Auto Di ff Reviewed date:06/25/2024 05:18:31 PM Interpretation: Performing Lab:[address] [phone] Notes/Report: White Blood Count 4.9 4.8-10.8 X10*3/uL [...] INR Reviewed date:06/26/2024 08:48:49 AM Interpretation: Performing Lab:[facility], [address] [place] [phone] Notes/Report: Prothrombin Time 20.6 10.9-12.4 SEC INTERNATIONAL [...] prosthetic heart valves: 2.5 - 3.5 Comprehensive [place] Reviewed date:06/25/2024 05:23:08 PM Interpretation: Performing Lab:[facility], [address] [place] [phone] Notes/Report: Sodium 140 135-145 mmol/L Potassium 5.1 [...] Panel Reviewed date:06/25/2024 05:18:07 PM Interpretation: Performing Lab:[facility], [address] [place] [phone] Notes/Report: Triglycerides 176 <150 mg/dL Desirable Triglyceride: [...] t Reviewed date:06/25/2024 05:29:45 PM Interpretation: Performing Lab:[facility], [address] [place] [phone] Notes/Report: Urine, Clean Catch Color Urine Yellow Appearance Urine Clear PH 7.0 5.0-9.0 Glucose Urine UA Negative Negative mg/dL Urine Blood Negative Negative Specific [place] - Urine 1.015 1.005-1.025 Urine Protein Negative Neg-Trace mg/dL Urine Ketones Negative Negative mg/dL Nitrite Urine Negative Negative Leukocyte Esterase Urine Large (3+) Negative RBC Urine 0-2 0-2 /HPF WBC Urine 21-50 0-5 /HPF Squamous Epithelial Cell Urine 6-10 0-2 /HPF Bacteria Urine None Seen None Seen Hyaline Casts Urine 0-2 0-2 /LPF Prothrombin Time INR Reviewed date:08/07/2024 05:04:12 PM Interpretation: Performing Lab:[facility], [address] [place] [phone] Notes/Report: Prothrombin Time 25.4 10.9-12.4 SEC INTERNATIONAL [...] 2.5 - 3.5 Prothrombin Time INR Reviewed date:11/06/2024 11:31:50 AM Interpretation: Performing Lab:[facility], [address] [place] [phone] Notes/Report: Prothrombin Time 22.2 10.9-12.4 SEC INTERNATIONAL NORM RATIO 1.9 0.9-1.1 [...] 2.5 - 3.5 Prothrombin Time INR Reviewed date:01/24/2024 12:30:50 PM Interpretation: Performing Lab:[facility], [address] [place] [phone] Notes/Report: Prothrombin Time 14.9 11.1-13.3 SEC INTERNATIONAL [...] INR Reviewed date:03/12/2024 12:45:00 PM Interpretation: Performing Lab:[facility], [address] [place] [address] Notes/Report: Prothrombin Time 19.2 11.1-13.3 SEC INTERNATIONAL [...] mechanical prosthetic heart valves: 2.5 - 3.5 XR chest 2V Reviewed date:01/24/2024 11:51:07 AM Interpretation:see back 01-24-2024 Performing Lab: Notes/Report: [facility] [address] [place] [address] XRay Report Signed Patient: Ruth Ceballos MR#: [id number] : 1955 Acct:[id number] Age/Sex: 68 / F ADM Date: 01/03/24 Loc: HO.XRAY Attending Dr: Jake Ware MD Ordering Physician: Jake Ware MD Date of Service: 01/03/24 Procedure(s): XR chest 2V Accession Number(s): [id number] cc: Jake Ware MD EXAMINATION: XR CHEST [...] in OV> 01/16/24 1027 DD/ 1019 TD/TT: Block Inspector: [address] [address] XRay Report Signed Patient: Ruth Ceballos#: [id number] : 1955 Acct:[id number] Age/Sex: 68 / F ADM Date: 01/03/24 Loc: HO.[place] Attending Dr: Jake Ware MD Ordering Physician: Jake Ware MD Date of Service: 01/03/24 Procedure(s): XR sri st 2V Accession Number(s): [id number] cc: Jake Ware MD EXAMINATION: XR CHEST CLINICAL INFORMATION: Patient states cough and radiating pain throughout chest for one week. COMPARISON: None available. TECHNIQUE: 2 views of the chest were obtained. FINDINGS: There is no gross pneumothorax. Degenerative changes in the thoracic spine. Mild bilatera l costophrenic angle blunting could represent trace pleural effusion nayely miguel pleural thickening, right greater than left. Mildly prominent diffuse interstitial markings of indeterminate age. Mediastinal clips. Filter type device in the right upper quadrant, just to the right of midline. XR/XR chest 2V IMPRESSION: 1. Mild bilateral costophrenic angle blunting could represent trace pleural effusion nayely miguel pleural thickening, right greater than left. 2. Mildly prominent diffuse interstitial markings of indeterminate age. Dictated By: Lea Bauer MD Signed By: <Electronically signed by Lea Bauer MD in OV> 01/16/24 1027 DD/ 1019 TD/TT: Block Inspector: Urine Culture Reviewed date:06/26/2024 12:44:43 PM Interpretation: Performing Lab:[facility], [address] [place] [phone] Notes/Report: O:STRAGA Strep agalactiae (Gr p B) Urine Culture Quant Urine Culture 50,000 to 100,000 cfu/mL Urine Culture [facility] N/A Urine Culture Susceptibility not routinely performed on this isolate. Reason For Referral No Information Medications Medication SIG (Take, Route, Frequency, Duration) Notes Start Date End Date Status Biotin 2.5 MG 1 capsule Orally Onc e a day for 30 day(s) Active LORazepam 1 MG 1 tablet Orally once a day for 30 days 07/02/2024 Active Ventolin HFA 108 (90 Base) MCG/ACT [...] BY MOUTH EVERY DAY for 90 Active ZyrTEC Allergy 10 MG 2 tablets Orally On ce a day for 30 day(s) Active Warfarin Sodium 2 MG TAKE 3 TABLETS BY MOUTH EVERY DAY for 90 Active Immunizations Vaccine Route Administration Date Status Comme nts [...] 06/01/2021 Administered SARS-COV-2 Pfizer Unknown 05/24/2022 Administered Social History Tobacco Use: Social History Observation Description Date Details (start date - stop date) Never Smoker NA - NA Tobacco Use/Smoking Question Answer Notes Patient is a nonsmoker Additional Findings: Tobacco Non-User Cu rrent non-smoker, currently using no form of tobacco Alcohol Screen Question Answer Notes Did you have a drink containing alcohol in the p ast year? 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 Problem 206713966 Tubular adenoma of colon (D12.6) Active confirmed Problem Long-term current us e of anticoagulant (825536902) [facility] current use of anticoagulant therapy (Z79.01) Active confirmed Problem 604498412 History of breas t cancer (Z85.3) Active confirmed Problem 588605500 Panic attacks (F41.0) Active confirmed Problem 692909760 Pulmonary nodule (R91.1) Active confirmed Problem Dry eyes (860937138) Dry eyes (H04.123) Active confirmed Problem hypercholesterolemia (disorder) (93104229) Hypercholesteremia (E78.00) Active confirmed Problem 258286879 Osteopenia determined by x-ray (M85.80) Active confirmed Problem 335839172 Mild intermitten t asthmatic bronchitis with acute exacerbation (J45.21) Active confirmed Problem 391639844 History of renal cell carcinoma (Z85.528) Active confirmed Vital Signs Blood pressure diastolic 58 mm Hg 07/02/2024 [...] Date Provider Diagnosis Jake Ware MD [address] [place], [place] [id number] 11/08/2023 Jake Ware extermination inspector current us e of anticoagulant therapy Z79.01 and 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 Jake Ware MD [address] [place] [id number] 12/13/2023 Jake Ware Hypercholesteremia E 78.00 ; 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 and extermination inspector current use of anticoagulant therapy Z79.01 Jake Ware MD [address] [place] [id number] 03/20/2024 Jake Ware Embolism and thrombo sis of renal vein I82.3 and [facility] current use of anticoagulant therapy Z79.01 Jake Ware MD [address] [place] [id number] 04/03/2024 Jake Ware extermination inspector current us e of anticoagulant therapy Z79.01 Jake Ware MD [address] [place] [id number] 06/25/2024 Jake Ware Hypercholesteremia E 78.00 ; extermination inspector current use of anticoagulant therapy Z79.01 and 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 Jake Ware MD [address] [place] [id number] 08/07/2024 Jake Ware [facility] current us e of anticoagulant therapy Z79.01 Jake Ware MD [address] [place] [id number] 11/06/2024 Jake Ware [facility] current us e of anticoagulant therapy Z79.01 and 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 Jake Ware MD [address] [place] [id number] 12/29/2023 Jake Ware Mild intermittent asthmatic bronchitis with acute exacerbation J45.21 Jake Ware MD [address] [place] [id number] 01/09/2024 Jake Ware Pulmonary nodules R9 1.8 and Chronic cough R05.3 Jake Ware MD [address] [place] [id number] 01/24/2024 Jake Ware [facility] current us e of anticoagulant therapy Z79.01 ; Chronic cough R05.3 and 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 MD [address] [place] [id number] 03/12/2024 Jake Ware Embolism and thrombo sis of renal vein I82.3 ; extermination inspector current use of anticoagulant therapy Z79.01 ; Chronic cough R05.3 and Pulmonary nodule R91.1 Jake Ware MD [address] [place] [address] [address] [place] [id number] 07/02/2024 Jake Ware Panic attacks F41.0 ; History of breast cancer Z85.3 ; 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 ; Malignant neoplasm of left kidney, except renal pelvis C64.2 ; Hypercalcemia E83.52 and Depression screening Z13.31 Jake Ware MD [address] [place] [address] [address] [place] [id number] 01/02/2024 Jake Ware Cough R05.9 Jake Ware MD [address] [place] [address] [address] [id number] 01/06/2024 Jake Ware MD [address] [place] [address] [address] [id number] 04/13/2024 Jake Ware Assessments Encounter Date Diagnosis (ICD Code) Assessment Notes Treatment Notes Treatment Clinical Notes Section Notes 11/08/2023 extermination inspector current us e of anticoagulant therapy (ICD-10 - Z79.01) 11/08/2023 Embolism and thrombosis of renal vein (ICD-10 - I82.3) 12/13/2023 Hypercholesteremia (ICD-10 - E78.00) 12/13/2023 Embolism and thrombosis of renal vein (ICD-10 - I82.3) 03/20/2024 Embolism and thrombosis of renal vein (ICD-10 - I82.3) 03/20/2024 [facility] current us e of anticoagulant therapy (ICD-10 - Z79.01) 04/03/2024 [facility] current us e of anticoagulant therapy (ICD-10 - Z79.01) 06/25/2024 Hypercholesteremia (ICD-10 - E78.00) 06/25/2024 [facility] current us e of anticoagulant therapy (ICD-10 - Z79.01) 08/07/2024 extermination inspector current us e of anticoagulant therapy (ICD-10 - Z79.01) 11/06/2024 extermination inspector current us e of anticoagulant therapy (ICD-10 - Z79.01) 12/29/2023 Mild intermittent asthmatic bronchitis with acute exacerbation (ICD-10 - J45.21) patient verbalized understanding of medications and directions for use 01/09/2024 Pulmonary nodules (ICD-10 - R91.8) need copy of the lung ct from [facility] explained what should be done. she is going to send the ct to [facility] to her oncologist before deciding what to do for follow up/ called [facility] for CT scan lung report 01/09/2024 Chronic cough (ICD-1 0 - R05.3) patient verbalized understanding of medicationnd directions for use 01/24/2024 [facility] current us e of anticoagulant therapy (ICD-10 - Z79.01) 01/24/2024 Chronic cough (ICD-1 0 - R05.3) need the cat scans of lung and throat and chest xray results from [facility] 01/05/24/ request will be sent for records 03/12/2024 Embolism and thrombosis of renal vein (ICD-10 - I82.3) pending lab, will continue to monitor 03/12/2024 [facility] current us e of anticoagulant therapy (ICD-10 - Z79.01) 07/02/2024 Panic attacks (ICD-1 0 - F41.0) takes ativan occasionally, will continue current regiment 07/02/2024 History of breast cancer (ICD-10 - Z85.3) followed by [facility] 12/13/2023 extermination inspector current us e of anticoagulant therapy (ICD-10 - Z79.01) 06/25/2024 Embolism and thrombosis of renal vein (ICD-10 - I82.3) 11/06/2024 Embolism and thrombosis of renal vein (ICD-10 - I82.3) 01/24/2024 Embolism and thrombosis of renal vein (ICD-10 - I82.3) 03/12/2024 Chronic cough (ICD-1 0 - R05.3) need notes from dr haines/ requested will be sent 07/02/2024 Embolism and thrombosis of renal vein (ICD-10 - I82.3) remains on anticoagulant, will continue current regiment 01/02/2024 Cough (ICD-10 - R05.9) 03/12/2024 Pulmonary nodule (ICD-10 - R91.1) need repeat ct chest.. done at [facility]/ order printed and put in future folder 07/02/2024 Malignant neoplasm o f left kidney, except renal pelvis (ICD-10 - C64.2) has been many years 07/02/2024 Hypercalcemia (ICD-1 0 - E83.52) only minimally elevated. repeat ca with next blood draw, will continue to monitor 07/02/2024 Depression screening (ICD-10 - Z13.31) negative screen Plan Of Treatment Pending Test Test Name Order Date URINALYSIS, COMPLETE 11/26/2011 MICROALBUMIN, RANDOM 11/19/2011 URINALYSIS (UA) 11/19/2011 PAP SMEAR (THIN PREP) 03/22/2016 US renal BI 06/05/2021 Future Test Test Name Order Date MAMMOGRAM DIGITAL UNILATERAL SUSAN RT 02/23 BONE DENSITY DEXA 09/24/2019 CT chest wo con 05/12/2024 Next Appt Details Provider Name:Jake Mark ier, 06/28/2025 08:00:00 AM, [address] [place] [address], [address], [phone], Provider Name:Jake Mark ier, 07/05/2025 01:00:00 PM, [address] [place] [address], [place] [address], [place], [place], [phone], Insurance Providers Payer Name Payer Address Payer Phone Subscriber Number Group Number Insured Name Patient Relationship to Insured Coverage Start Date Coverage End Date MEDICARE NHIC REJI [address] [place] [id number] Ruth Ceballos Self - patient is the insured [employer] [place] [address] [place] [address] [id number] Ruth Ceballos Self - patient is the insured Medical (General) History Medical History History ICD Code colonoscopy [address] Carl Serna - repeat 5 years; Refused colonoscopy in 2018 because she got sick in 2012. Won't have : colonoscopy 11/17/21 repeat due in 10 years. Pap Smear - 08/2012; mammogram 12/2012 in [place] 2016 done yearly in [facility] Bone density done 09/13/2017 - needs repe at in 2 years
--- OUTSIDE RECORDS SUMMARY | 2024-11-06 12:40 | XMS_ITS ---
Author Organization Jake Ware MD Address [address] [place], [place] [phone] Care Team Providers Care Residential Door Installer Name Role Phone Jake Ware Primary Care Provider [phone] Results Component Value Reference Range Notes Prothrombin Time INR Reviewed date:08/07/2024 05:04:12 PM Interpretation: Performing Lab:[facility], [address] [place] [phone] Notes/Report: Prothrombin Time 25.4 10.9-12.4 SEC INTERNATIONAL [...] Date Provider Diagnosis Jake Ware MD [address] [place] [id number] 08/07/2024 Jake Ware intermediate current us e of anticoagulant therapy Z79.01 Assessments Encounter Date Diagnosis (ICD Code) Assessment Notes Treatment Notes Treatment Clinical Notes Section Notes 08/07/2024 extermination inspector current use of anticoagulant therapy (ICD-10 - Z79.01) Plan Of Treatment Next Appt Details Provider Name:Jake ortega, 06/28/2025 08:00:00 AM, [address] [facility], [address] [facility], [place], [place], [phone], Provider Name:Jake Mark ier, 07/05/2025 01:00:00 PM, [address], [address], [place], [place], [phone], Progress Notes * Ruth CEBALLOS MDOB:1955 ( 69 yo F)Acc No.[id number]:08/07/2024 Progress Note Patient:?Ruth CEBALLOS M Provider:?Jake Ware MD :1955???Age:68 Y???Sex:Female D ate:08/07/2024 Address:[address] [place] [address] , [facility], [facility] Subjective: * Chief Complaints: * ???1. INR. * Medical History:? Objective: * Vitals:? Assessment: * Assessment: 1.?extermination inspector current use of anticoagulant therapy - Z79.01 (Primary)??? Plan: * Treatment: * Procedure Codes:?03448 VENIP UNCT, ROUTINE* * * The named appointment provid er may or may not be the originator of this progress note, and it is not deemed complete until electronically signed by the appointment provider. Sign off status: Pending * Provider:?Jake Ware MD Date:?0 08/07/2024 Generated for Audrey seth/Salima/Luzmasmitting on:?11/06/2024 12:39 PM EDT
--- OUTSIDE RECORDS SUMMARY | 2024-11-06 12:40 | XMS_ITS ---
Author Organization Jake Ware MD Address [address] [place] [phone] Care Team Providers Care Dental Biller Name Role Phone Jake Ware Primary Care Provider Results Component Value Reference Range Notes Prothrombin Time INR Reviewed date:07/20/2024 03:13:00 PM Interpretation: Performing Lab:[facility], [address] [place] [phone] Notes/Report: Prothrombin Time 21.7 10.9-12.4 SEC INTERNATIONAL [...] Jake Ware MD [address] [place] [id number] 07/20/2024 Jake Ware half-way current us e of anticoagulant therapy Z79.01 and 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 Assessments Encounter Date Diagnosis (ICD Code) Assessment Notes Treatment Notes Treatment Clinical Notes Section Notes 07/20/2024 half-way current use of anticoagulant therapy (ICD-10 - Z79.01) order faxed to [facility]. [phone] 07/20/2024 Embolism and thrombosis of renal vein (ICD-10 - I82.3) Plan Of Treatment Treatment Notes Assessment Notes half-way current use of ant icoagulant therapy order faxed to [facility]. [phone] Next Appt Details Provider Name:Jake Mark dotr, 06/28/2025 08:00:00 AM, [address] [facility], [address], [place], [place], [phone], Provider Name:Jake Mark ier, 07/05/2025 01:00:00 PM, [address] [facility], [address], [place], [place], [phone], Progress Notes * Ruth CEBALLOS MDOB:1955 ( 69 yo F)Acc No.[id number]:07/20/2024 Progress Note Patient:?Ruth CEBALLOS Provider:?Jake Ware MD :1955???Age:68 Y???Sex:Female D ate:07/20/2024 Address:[address] [place] [address] , [facility] [address], [id number] Subjective: * Chief Complaints: * ???1. INR. * Medical History:? Objective: * Vitals:? 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 Plan: * Treatment: Notes: order faxed to [facility]. [phone]??2.?Embolism and thrombosis of renal vein?LAB: Prothrombin Time INR (Collection Date & Time - 07/20/2024 12:09 PM)* Beth Alegre 03:12:15 PM EST > Patient notified * * The named appointment provid er may or may not be the originator of this progress note, and it is not deemed complete until electronically signed by the appointment provider. Sign off status: Pending * Provider:?Jake Ware MD Date:?1 09/20/2023 Generated for Audrey seth/Salima/eTransmitting on:?11/06/2024 12:40 PM EDT
--- OUTSIDE RECORDS SUMMARY | 2024-11-06 12:40 | XMS_ITS ---
Author Organization Jake Ware MD Address [address] [place], [place] [address] Care Team Providers Care Information Services Tech Name Role Phone Jake Ware Primary Care Provider Results Component Value Reference Range Notes Prothrombin Time INR Reviewed date:11/06/2024 11:31:50 AM Interpretation: Performing Lab:[facility], [address] [place] [phone] Notes/Report: Prothrombin Time 22.2 10.9-12.4 SEC INTERNATIONAL [...] 2.5 - 3.5 REASON FOR VISIT INR Medications Medication SIG (Take, Route, Frequency, Duration) [...] 1 tablet Orally Once a day Not-Taking Warfarin Sodium 2 MG TAKE 3 TABLETS BY MOUTH EVERY DAY for 90 Active Cyclobenzaprine HCl 5 MG 1 tablet as [...] ce a day for 30 day(s) Active Encounters Encounter Location Date Provider Diagnosis Jake Ware MD [address] [place] [address] [place] [phone] 11/06/2024 Jake Ware half-way current us e of anticoagulant therapy Z79.01 and 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 Assessments Encounter Date Diagnosis (ICD Code) Assessment Notes Treatment Notes Treatment Clinical Notes Section Notes 11/06/2024 half-way current use of anticoagulant therapy (ICD-10 - Z79.01) 11/06/2024 Embolism and thrombosis of renal vein (ICD-10 - I82.3) Plan Of Treatment Next Appt Details Provider Name:Jake ortega, 06/28/2025 08:00:00 AM, [address] [place] [address], Suite [facility], [place], [place], [phone], Provider Name:Jake ortega, 07/05/2025 01:00:00 PM, [address] [place] [address], Suite [facility], [place], [place], [phone], Progress Notes * Ruth CEBALLOS MDOB:1955 ( 69 yo F)Acc No.[id number]:11/06/2024 Progress Note Patient:?Ruth CEBALLOS Provider:?Jake Ware MD :1955???Age:69 Y???Sex:Female D ate:11/06/2024 Address:[address] [place] [address] , [address], [facility] Subjective: * Chief Complaints: * ???1. INR. * Medical History:? * Medications:?Taking Biotin 2 .5 MG Capsule 1 capsule Orally Once a day , Taking Warfarin Sodium 2 MG Tablet TAKE 3 TABLETS BY MOUTH EVERY DAY , Taking ZyrTEC Allergy 10 MG Tablet 2 tablets Orally Once a day , Taking Atorvastatin Calcium 20 MG Tablet TAKE 1 TABLET BY MOUTH EVERY DAY , Taking LORazepam 1 MG Tablet 1 tablet Orally once a day , Not-Taking/PRN Mucinex Maximum Strength 1200 MG Tablet Extended Release 12 Hour 1 tablet as needed Orally every 12 hrs , Not-Taking/PRN Albuterol Sulfate HFA 108 (90 Base) MCG/ACT Aerosol Solution 1 puff as needed Inhalation every 4 hrs , Not-Taking/PRN Meclizine HCl 25 MG Tablet 1 tablet as needed Orally every 12 hrs , Not-Taking/PRN Cyclobenzaprine HCl 5 MG Tablet 1 tablet as needed Orally two times a day , Not-Taking/PRN Valtrex 500 MG Tablet 1 tablet Orally Once a day , Not-Taking/PRN Ventolin HFA 108 (90 Base) MCG/ACT Aerosol Solution 2 puffs as needed Inhalation every 4 hrs Objective: * Vitals:? Assessment: * Assessment: 1.?half-way current use of anticoagulant therapy - Z79.01 (Primary)???2.?Embolism and thrombosis of renal vein - I82.3??? Plan: * Treatment: 2.?Embolism and thrombosis o f renal vein?LAB: Prothrombin Time INR (Collection Date & Time - 11/06/2024 09:00 AM) * Procedure Codes:?30663 VENIP UNCT, ROUTINE* * * The named appointment provid er may or may not be the originator of this progress note, and it is not deemed complete until electronically signed by the appointment provider. Sign off status: Pending * Provider:?Jake Ware MD Date:?0 11/06/2024 Generated for Audrey seth/Salima/Michaelitting on:?11/06/2024 12:39 PM EDT
--- OUTSIDE RECORDS SUMMARY | 2024-11-06 12:40 | XMS_ITS | Patient Health Record ---
Author Organization [facility] Address [address] [place] [address] Care Team Providers Care Insurance Specialist Name Role Phone Jeanie CARVALHO, Jake Primary Care Provider Darian Denny Jr Unavailable Allergies Allergen (clinical drug ingredient) Drug/Non Drug Allergy documented on EMR Reaction Allergy Type Onset Date Status Penicillin Unknown Drug Allergy Active IV contrast Dye ? (uncoded) Unknown Allergy Active Shellfish (FN) shell fish (uncoded) Unknown Allergy Active Reason For Referral No Information Medications Medication [...] day for 10 day(s) as needed Active Immunizations Vaccine Route Administration Date Status Comme nts Influenza Unknown 05/13/2021 Administered Problems Problem Type SNOMED Code ICD Code Onset Dates Problem Status W/U Status Risk Notes Problem 600647440 Colon cancer screening (Z12.11) Active confirmed Problem 231911800 alf (curre nt) use of anticoagulants (Z79.01) Active confirmed Problem 405539028 Personal history of colonic polyps (Z86.010) Active confirmed Plan Of Treatment Future Test Test Name Order Date COLONOSCOPY 08/11/2012 COLONOSCOPY 09/28/2021 COLONOSCOPY 10/22/2021 Insurance Providers Payer Name Payer Address Payer Phone Subscriber Number Group Number Insured Name Patient Relationship to Insured Coverage Start Date Coverage End Date MEDICARE OF [place] [address] [place] [id number] DOROTHY FREEMAN Self - patient is the insured MEDEX ATTN CLAIMS [address] [place] [address] [id number] DOROTHY FREEMAN Self - patient is the insured Medical (General) History Medical History History ICD Code DVT renal cell carcinoma breast cancer Elevated cholesterol Osteopenia Panic attacks Surgical History Surgery Date(Month/Year) right nephrectomy mastectomy, left tubal ligation IVC filter placement
== END 2024-11-06 10:31 | disposition home or self-care (01) ==
LOC: HO.LNP 10:30
PROVIDERS: Visit Provider Internal Medicine
DX: I82.3 Embolism and thrombosis of renal vein (principal); Z79.01 Long term (current) use of anticoagulants
CPT/HCPCS: 85610

== ENCOUNTER 2024-11-20 11:04 | Outpatient (REF) | payer MEDICARE, SELFPAY ==
[2024-11-20 11:17] LABS: INTERNATIONAL NORM RATIO 2.2 (0.9-1.1); Prothrombin Time 25.7 SEC (10.9-12.4)
--- OUTSIDE RECORDS SUMMARY | 2024-11-20 12:55 | XMS_ITS | Data Portability ---
Author Organization [place] - [facility], Allergy Address [address] [facility] [address] [place] [address] Care Team Providers Care Purchasing Department Clerk Name Role Phone DANIEL FISHER Primary Care Provider Assessment Encounter Date Assessment Date Assessment LastModified [...] referral - Appt 03/09 @ 12pm 2023 [facility], [address] [place] [address], 1[address] Floor, [place], [address], 11:19:50 Procedures None recorded . Surgeries None recorded . Imaging None recorded . Medication Orders None recorded . Patient TargetsNo targets recorded. Patient InstructionsNo instructions recorded. Reason for Referral Appt 03/09 @ 12pm Referring Physician: Everett Ca, Otolaryngology, Encounter Date: 02/22/2024 Problems Name Problem SNOMED Code Status Onset Date Resolution Date Notes Provider Name and Address Organization Details Recorded Time Chronic cough 21139907 Active EVERETT CA MD [address] [facility], [place], [address] , [place] [facility] 02/21/2024 17:33:48 Problem Notes None recorded. Procedures Surgical History Date Name Laterality Status Provider Name and Address Organization Details Recorded Time FOL_DP completed EVERETT CA MD [address] [place] [address], [phone], [facility] 02/21/2024 17:33:39 7 excision of left breast completed Sneha Flynn [facility] 02/22/2024 10:27:30 Imaging Results None recorded. Procedure Notes None recorded. Medical Equipment None Reported. Allergies Allergen ID Allergen Name Allergen Category Reaction Reaction Severity Criticality Documentation Date Start Date Code Code System Note Provider Name and Address Organization Details Recorded Time 684738 Product containin g penicilli n (product) medicatio n itching Not available Not available 02/22/2024 68133 8001 SNOMED Sneha sánchez [facility] 4 10:25:05 800915 shellfish derived food,medi cation itching Not available Not available 02/22/2024 59278 UNK Sneha sánchez [facility] 4 10:25:22 Medications Name Sig Start Date [...] Updated DateTime 02/22/2024 167.64 cm 23.1 kg/m2 16911.71 g Sneha Flynn [place] - [facility] 02/22/2024 10:31:40 Social History None recorded. Functional Status None recorded. Mental Status None recorded. Family History Nothing Reported. Medical History Condition Response Emphysema Y Anxiety Y Gynecological HistoryNo gynecological history recorded. Obstetrics History GPAL:G 0 P 0 0 0 0 Past Encounters Encounter ID Performer Location Encounter Start Date Encounter Closed Date Diagnosis/Indication Diagnosis SNOMED-CT Code Diagnosis ICD10 Code Diagnosis Note [id number] EVERETT CA MD [facility] [address] [address] 02/22/2024 09:43:49 02/22/2024 11:04:16 Chronic cough 18233539 R05.3 Health Concerns Section Related Observation LastModified by Organization Detai ls LastModified Time None Recorded Concern Status LastModified by Organization Details LastModified Time None Recorded Advance Directives Directive None Recorded Payers Encounter Date Sequence Insurance Name Policy Number Policy Bond Covered Member ID Bond Member ID Guarantor Name 02/22/2024 1 [place] [employer] [facility] Page [id number] [facility] 02/22/2024 2 [place] [id number] [facility] Page [id number] [facility] Page Notes Date Note Type Note [...] renal cell ca with thrombosis treated with [id number] breast ca treated with mastectomy, chemo EVERETT CA MD [address] [place] [address], [phone], [place] - [facility] 02/22/2024 11:03:00 OBGyn Episode No OBEpisode recorded.
== END 2024-11-20 11:05 | disposition home or self-care (01) ==
LOC: HO.LNP 11:04
PROVIDERS: Visit Provider Internal Medicine
DX: I82.3 Embolism and thrombosis of renal vein (principal); Z79.01 Long term (current) use of anticoagulants
CPT/HCPCS: 85610

== ENCOUNTER 2025-03-26 11:08 | Outpatient (REF) | payer MEDICARE, SELFPAY ==
[2025-03-26 11:25] LABS: INTERNATIONAL NORM RATIO 2.4 (0.9-1.1); Prothrombin Time 27.2 SEC (10.9-12.4)
--- OUTSIDE RECORDS SUMMARY | 2025-03-26 12:43 | XMS_ITS | Clinical Summary ---
Author Organization [facility] Address [address] [place] [address] Phone Care Team Providers Care Wood Shop Teacher Name Role Phone Jake Ware MD Primary Care Provider Nerissa Serna MD, DPHIL Unavailable [phone] Allergies Active Allergy Reactions Criticality Noted Date Comments Iodinated Contrast Media Hives High 03/15/2007 contrast dye- needs prednisone taper Penicillins Hives 03/15/2007 Shellfish Containing Products Hives 03/15/2007 Medications calcium carbonate-vitami n D3 1,250 mg (500 mg elemental)-400 units per tablet Take 1 tablet by mouth 2 (two) times a day. Active Medication-Free Text 50 mg. Zinc Active atorvastatin (LIPITOR) 20 MG tablet Take 20 mg by mouth daily. 04/25/2022 Active warfarin (COUMADIN) 2 MG tablet Take 6 mg by mouth daily. 02/24/2022 Active LORazepam (ATIVAN) 1 MG tablet 1 tablet. 06/14/2022 Active biotin 1 mg tablet Take 1,000 mcg by mouth 3 (three) times a day. Active cetirizine (ZYRTEC) 10 MG tablet Take 10 mg by mouth daily. Active valACYclovir (VALTREX) 500 MG tabletIndication s:Herpes genitalis in women TAKE 1 TABLET (500 MG TOTAL) BY MOUTH DAILY. 90 tablet 2 10/29/2024 Active Active Problems Problem Noted Date Diagnosed Date Embolism and thrombosis of renal vein 10/06/2022 long term care social worker (current) use of anticoagulants 2022 Osteopenia 10/06/2022 Personal history of other malignant neoplasm of kidney 10/06/2022 Personal history of malignant neoplasm of breast 10/06/2022 Pure hypercholesterolemia 10/06/2022 Tubular adenoma of colon 10/06/2022 Fibroids 09/14/2016 Uterine prolapse 09/14/2016 Assessment & Plan (08/08/2024 4:31 PM EST): She remains asymptomatic and is not interested in any form of treatment. Osteoporosis 06/27/2013 Overview (09/13/2014): Osteoporosis Breast cancer 03/15/2007 Overview (09/13/2014): Breast cancer; left, 2006 Assessment & Plan (02/24/2016 10:01 PM EDT): DAVID on clinical exam today. She is doing well and will continue tamoxifen. She is thinking about pursuing breast reconstruction. Referral placed for consult. She is also planning on hysterectomy for uterine prolapse. She continues on alendronate for osteoporosis. Next BMD 2017. Deep vein thrombosis 03/15/2007 Overview (09/14/2016): Deep venous thrombosis; after her L Kidney surgery; still has IVC filter Malignant tumor of kidney 03/15/2007 Overview (09/13/2014): Renal cancer Gastroesophageal reflux disease 03/15/2007 Overview (09/13/2014): Gastroesophageal reflux disease Migraine 03/15/2007 Overview (09/13/2014): Migraine headache Herpes genitalia Assessment & Plan (04/04/2020 10:39 AM EDT): Infrequent outbreaks. Would like to continue on suppressive treatment. Needs refills which were provided. PMB (postmenopausal bleeding) Endometrial polyp Immunizations Immunization Administration Dates Next Due COVID-19 (Pre-05/16) Pfizer Vaccine, mRNA, PF 05/24/2022,06/01/2021 Hiv 11/17/2020 INFLUENZA, SPLIT VIRUS, TRIVALENT PF ,03/25/2020,04/12/2019,05/23,04/20/2016,04/23/2014 Influenza Quadrivalent Adjuv anted Preservative Free IM 05/06/2021 Influenza Quadrivalent MDCK Preservative Free IM 07/07/2022 Influenza Quadrivalent Prese rvative Free IM 03/31/2020,05/23/2018 Influenza Split (Incl. Purif ied Surface Antigen) 06/22/2012 Influenza, Unspecified Formulation 04/15/2011 Pneumococcal conjugate PCV13 06/02/2020 Pneumococcal polysaccharide PPSV23 05/22/2019 Family History Medical History Relation Comments No Known Problems Brother 1 after a f all Cancer Brother 2 GI carcinoid; di ed in his 60s. Pneumonia Father age 84 Thyroid cancer Father Ovarian cancer Maternal Grandmother No Known Problems Mother age 86 n atural No Known Problems Sister Relation Status Comments Brother 1 Brother 2 Father Maternal Grandmother Mother Sister Alive Social History Tobacco Use Types Packs/Day Years Used Date Smoking Tobacco: Never Smokeless Tobacco: Never Tobacco Cessation:Counseling Given: Not Answered Alcohol Use Standard Drinks/Week Comments Not Currently 0 (1 standard drink = 0.6 oz pur e alcohol) rare Education Answer Date Recorded Are you interested in more education? Not on denise e 11/20/2022 Are you concerned about learning? Not on file 11/20/2022 No 11/20/2022 No 11/20/2022 Digital Access Answer Date Recorded No 12/18/2022 No 12/18/2022 Reliable internet access at home? Not on file 12/18/2022 Device with a working camera? 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 on file Not on file Not on denise e Last Filed Vital Signs Vital Sign Reading Time Taken Comments Blood Pressure 134/76 10/03/2024 11:32 AM EDT Pulse 87 10/03/2024 11:32 AM EDT Temperature 36.2 C (97.2 F) 10/03/2024 11:32 AM EDT Respiratory Rate 16 10/03/2024 11:32 AM EDT Oxygen Saturation 97% 10/03/2024 11:32 AM EDT Inhaled Oxygen Concentration - - Weight 68.5 kg (151 lb) 10/03/2024 11:32 AM EDT Height 167 cm (5' 5.75 ) 10/03/2024 11:32 AM EDT Body Mass Index 24.56 10/03/2024 11:32 AM EDT Plan of Treatment Health Maintenance Due Date Last Done Comments Adult Td,Tdap Booster 1955 LIPID PANEL 1955 DEPRESSION SCREENING 1967 HEPATITIS C SCREENING 10/29/1973 ZOSTER VACCINES (1 of 2) 10/29/1974 COLOGUARD 10/29/2000 COLONOSCOPY 10/29/2000 COLORECTAL CANCER SCREENING 10/29/2000 FIT TEST 10/29/2000 FOBT 10/29/2000 SIGMOIDOSCOPY 10/29/2000 VIRTUAL COLONOSCOPY 10/29/2000 MAMMOGRAM 01/03/2017 01/03/2015, 12/23, 12/23/2012, Additional history exists COVID-19 VACCINE ( season) 2024 05/24/2022, 05/24/2022, 06/01/2021, Additional history exists PNEUMOCOCCAL VACCINES (50+ years) (3 of 3 - PPSV23, PCV20 or PCV21) 05/22/2024 06/02/2020, 05/22/2019 INFLUENZA VACCINE (#1) 2025 2, 05/06/2021, 05/06/2021, Additional history exists RSV VACCINE (1 - 1-dose 75+ series) 10/29/2030 OSTEOPOROSIS SCREENING INITIAL (ONE-TIME) Completed 06/05/2020, 09/13/2017, 09/09/2015, Additional history exists SMOKING STATUS SCREENING (Once After 26 Yrs) Completed 10/09/2024 HEPATITIS A VACCINES Aged Out No long er eligible based on patient's age to complete this topic HIB VACCINES Aged Out No longer eligi ble based on patient's age to complete this topic MENINGOCOCCAL VACCINES (ACWY) Aged Out No longer eligible based on patient's age to complete this topic MENINGOCOCCAL VACCINES (B) Aged Out N o longer eligible based on patient's age to complete this topic Medical Devices Implanted Type Area Manager Project Device Identifier Shelf Expiration Date Model / Serial / Lot Filter Filter Procedures Procedure Name Priority Date/Time Associated Diagnosis Comments BD DXA AXIAL (SPINE) WITH HIP Routine 06/05/2020 11:20 AM EST Malignant neoplasm of areola of left breast in female, estrogen receptor negative BI MAMMOGRAM SCREENING WITH TOMOSYNTHESIS (UNILATERAL) 01/03/2015 4:35 PM EDT from Last 3 Months or Most Recently Relevant to Health Maintenance Results * BD DXA AXIAL (SPINE) WITH HIP (06/05/2020 11:20 AM EST) Anatomical Region Laterality Modality Bone Density Bone Density 06/05/2020 2:41 PM EST Impressions 06/05/2020 2:42 PM EST Findings consistent with osteopenia. Narrative 06/05/2020 2:42 PM EST This is a 64-year-old postmenopausal female presenting for a baseline screening exam. Evaluation of the lumbar spine and both hips is obtained and appears technically adequate. The lumbar spine from L1 through L4 discloses a total bone mineral density of 0.778 g/cm2 with a T-score of -2.4. Z score -0.7. This is in the osteopenia range. The right hip (total) has a total bone mineral density of 0.71 g/cm2 with a T-score of -1.3. Z score -0.1. This is in the osteopenia range. The right hip (neck) has a total bone mineral density of 0.742 g/cm2 with a T- score of -1.0. Z score 0.5. The left hip (total) has a total bone mineral density of 0.730 g/cm2 for a T- score of -1.7. Z score -0.5. This is in the osteopenia range. The left hip (neck) has a total bone mineral density of 0.685 g/cm2 with a T- score of -1.5. Procedure Note Flavio Golden MD - 06/05/2020 This is a 64-year-old postmenopausal female presenting for a baselinescreening exam. Evaluation of the lumbar spine and both hips is obtained and appearstechnically adequate. The lumbar spine from L1 through L4 discloses a total bone mineral densityof 0.778 g/cm2 with a T-score of -2.4. Z score -0.7. This is in theosteopenia range. The right hip (total) has a total bone mineral density of 0.71 g/cm2 witha T- score of -1.3. Z score -0.1. This is in the osteopenia range. The right hip (neck) has a total bone mineral density of 0.742 g/cm2 witha T- score of -1.0. Z score 0.5. The left hip (total) has a total bone mineral density of 0.730 g/cm2 for aT- score of -1.7. Z score -0.5. This is in the osteopenia range. The left hip (neck) has a total bone mineral density of 0.685 g/cm2 with aT- score of -1.5. IMPRESSION: Findings consistent with osteopenia. us Nerissa Serna MD, DPHIL IMG BD BONE DENSITY DEXA F inal Result * Mammogram Screening With Tomosynthesis (Unilateral) (01/03/2015 4:35 PM EDT) Anatomical Region Laterality Modality Breast Left, Breast Right, Breast Bilateral Mammography 01/02/2015 11:4 9 AM EDT Narrative 01/02/2015 11:49 AM EDT Exam Number: [id number] Report Status: Final Type: Mammo UniDigScrn w CAD&Elroy Date/Time: 01/02/2015 11:49 Exam Code: BISCRUT/RIGHT Ordering Provider: Nerissa Serna MD DPHIL HISTORY: - Annual - REPORT TECHNIQUE: Both standard mammographic and tomosynthesis images were obtained and reviewed as part of this examination. RIGHT BREAST MAMMOGRAM The present study is compared to previous studies. Computer-aided detection (Provender version 1.3) was utilized by the radiologist in the interpretation of this examination. The breast tissue is heterogeneously dense, which could obscure detection of small masses. No masses, areas of architectural distortion or suspicious microcalcifications are evident. There are no significant changes from the prior study. IMPRESSION: There is no specific mammographic evidence of malignancy. BI-RADS Category 1 Negative Patient's information is entered into a reminder system with a target due date for the next mammogram. PROVIDERS: SIGNATURES: Sushma Rivera MD, Margo M MD Procedure Note System, Provider Not In, PhD - 01/03/2015 Exam Number: [id number] Report Status: Final Type: Mammo UniDigScrn w CAD&Elroy Date/Time: 01/02/2015 11:49 Exam Code: BISCRUT/RIGHT Ordering Provider: Nerissa Serna MD DPHIL HISTORY: - Annual - REPORT TECHNIQUE: Both standard mammographic and tomosynthesis images were obtained and reviewed as part of this examination. RIGHT BREAST MAMMOGRAM The present study is compared to previous studies. Computer-aided detection (R2 CENOVA version 1.3) was utilized by the radiologist in the interpretation of this examination. The breast tissue is heterogeneously dense, which could obscure detection of smallmasses. No masses, areas of architectural distortion or suspicious microcalcifications are evident. There are no significant changes from the prior study. IMPRESSION: There is no specific mammographic evidence of malignancy. BI-RADS Category 1 Negative Patient's information is entered into a reminder system with a target due date for the next mammogram. PROVIDERS: SIGNATURES: Sushma Rivera MD, Margo M MD Nerissa Serna MD, DPHIL IMG MG EXAMS Final Resu lt from Last 3 Months or Most Recently Relevant to Health Maintenance Insurance [facility] MEDEX SUPPLEMENT MEDICARE PART A & B [employer] MEDEX SUPPLEMENT MEDICARE PART A & B [employer] MEDEX SUPPLEMENT MEDICARE PART A & B BLUE [employer] MEDEX SUPPLEMENT MEDICARE PART A & B Member Subscriber Plan / Payer (Ef fective 2020-) Name:Ruth Ceballos Member ID:[id number] Relation to Subscriber:Self Name:Ruth Ceballos Subscriber ID:[id number] Payer ID:[id number] Group ID:Not on file Type:Medicare Address: [employer] [id number] [employer] CROSS MEDEX SUPPLEMENT MEDICARE PART A & B [employer] CROSS MEDEX SUPPLEMENT Member Subscriber Plan / Payer (Ef fective 2020-) Name:Ruth Ceballos Relation to Subscriber:Self Name:Ruth Ceballos Payer ID:[id number] (NAIC) Type:Indemnity Address: [place] [id number] MEDICARE PART A & B [employer] MEDEX SUPPLEMENT MEDICARE PART A & B [employer] MEDEX SUPPLEMENT MEDICARE PART A & B [employer] CROSS MEDEX SUPPLEMENT MEDICARE PART A & B Advance Directives For more information, please contact: [phone] (9AM - 5PM [place], Tuesday-Tuesday) * Full Code (Latest Code Status on File) Date Activated Date Inactivated Comments 11/15/2022 10:45 AM Question Answer Comments Code Status Confirmed With: Patient Care Teams Wood Shop Teacher Relationship Specialty Start Date End Date Jake Ware MD [address] [place] [address] Dr MONAE [address] [place] [id number] PCP - General 01/22/14 Nerissa Serna MD, DPHIL [address] [place] [address] [address] [place] [address] [email or web address] Primary Oncologist Medical Oncology 10/30/18 Additional Source Comments The information contained in this document represents components of the legal health record. It is not the complete legal health record.[facility]
--- OUTSIDE RECORDS SUMMARY | 2025-03-26 12:43 | XMS_ITS | Encounter Summary ---
Author Organization [facility] Address [address] [place] [address] Phone Care Team Providers Care Nurse Practitioner Home Assessments Name Role Phone Jake Ware MD Primary Care Provider Nerissa Serna MD, DPHIL Unavailable [phone] Encounter Details Date Type Department Care Team (Late st Contact Info) Description 07/29/2020 Procedure Pass [facility] [address] [place] [address] Social History Tobacco Use Types Packs/Day Years Used Date Smoking Tobacco: Never Smokeless Tobacco: Never Alcohol Use Standard Drinks/Week Comments Yes 2 (1 standard drink = 0.6 oz pur e alcohol) Comments No Sex and Gender Information Value Date Recorded Sex Assigned at Not on file Legal Sex Female 6:35 PM EST Gender Identity Not on file Sexual Orientation Not on file 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 Not on file Not on denise e documented as of this encounter Plan of Treatment Not on file documented as of this encounter Visit Diagnoses Not on filedocumented in this encounter Care Teams Nurse Practitioner Home Assessments Relationship Specialty Start Date End Date Jake Ware MD [address] [place] [address] [place] [address] PCP - General 01/22/14 Nerissa Serna MD, DPHIL [address] [place] [address] [address] [place] [address] [email or web address] Primary Oncologist Medical Oncology 10/30/18 documented as of this encounter Additional Source Comments The information contained in this document represents components of the legal health record. It is not the complete legal health record.[facility]
--- OUTSIDE RECORDS SUMMARY | 2025-03-26 12:43 | XMS_ITS | Encounter Summary ---
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 Not on denise e documented as of this encounter Plan of Treatment Not on file documented as of this encounter Visit Diagnoses Not on filedocumented in this encounter Care Teams Instrumentation Controls Engineer Relationship Specialty Start Date End Date Jake Ware MD [address] [place] [address] [place] [address] PCP - General 01/22/14 Nerissa Serna MD, DPHIL [address] [place] [address] [address] [place] [address] [email or web address] Primary Oncologist Medical Oncology 10/30/18 documented as of this encounter Additional Source Comments The information contained in this document represents components of the legal health record. It is not the complete legal health record.[facility]
--- OUTSIDE RECORDS SUMMARY | 2025-03-26 12:43 | XMS_ITS | Encounter Summary ---
Author Organization 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 Not on denise e documented as of this encounter Plan of Treatment Not on file documented as of this encounter Visit Diagnoses Not on filedocumented in this encounter Care Teams Airdrop Systems Technician Relationship Specialty Start Date End Date Jake Ware MD [address] [place] [address] [place] [address] PCP - General 01/22/14 Nerissa Serna MD, DPHIL [address] [place] [address] [address] [place] [address] [email or web address] Primary Oncologist Medical Oncology 10/30/18 documented as of this encounter Additional Source Comments The information contained in this document represents components of the legal health record. It is not the complete legal health record.[facility]
--- OUTSIDE RECORDS SUMMARY | 2025-03-26 12:43 | XMS_ITS | Encounter Summary ---
Author Organization [facility] Address [address] [place] [phone] Phone Care Team Providers Care Shop Welder Name Role Phone Jake Ware MD Primary Care Provider Nerissa Serna MD, DPHIL Unavailable [phone] Encounter Details Date Type Department Care Team (Late st Contact Info) Description 09/16/2023 Procedure Pass [facility] - [address] [place] [address] Social History Tobacco Use Types Packs/Day Years Used Date Smoking Tobacco: Never Smokeless Tobacco: Never Alcohol Use Standard Drinks/Week Comments Not Currently [...] 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 Not on denise e documented as of this encounter Plan of Treatment Not on file documented as of this encounter Visit Diagnoses Not on filedocumented in this encounter Care Teams Shop Welder Relationship Specialty Start Date End Date Jake Ware MD [address] [place] [address] Dr MONAE [address] [place] [address] PCP - General 01/22/14 Nerissa Serna MD, DPHIL [address] [place] [address] [email or web address] Primary Oncologist Medical Oncology 10/30/18 documented as of this encounter Additional Source Comments The information contained in this document represents components of the legal health record. It is not the complete legal health record.[facility]
--- OUTSIDE RECORDS SUMMARY | 2025-03-26 12:43 | XMS_ITS | Encounter Summary ---
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 Not on denise e documented as of this encounter Plan of Treatment Not on file documented as of this encounter Visit Diagnoses Not on filedocumented in this encounter Care Teams Chief Compressor Station Engineer Relationship Specialty Start Date End Date Jake Ware MD [address] [place] [address] [place] [address] PCP - General 01/22/14 Nerissa Serna MD, DPHIL [address] [place] [address] [address] [place] [address] [email or web address] Primary Oncologist Medical Oncology 10/30/18 documented as of this encounter Additional Source Comments The information contained in this document represents components of the legal health record. It is not the complete legal health record.[facility]
--- OUTSIDE RECORDS SUMMARY | 2025-03-26 12:43 | XMS_ITS | Encounter Summary ---
Author Organization [facility] Address 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 Not on denise e documented as of this encounter Plan of Treatment Not on file documented as of this encounter Visit Diagnoses Not on filedocumented in this encounter Care Teams Occ Med Physician Relationship Specialty Start Date End Date Jake Ware MD [address] [place] [address] [place] [address] PCP - General 01/22/14 Nerissa Serna MD, DPHIL [address] [place] [address] [address] [place] [address] [email or web address] Primary Oncologist Medical Oncology 10/30/18 documented as of this encounter Additional Source Comments The information contained in this document represents components of the legal health record. It is not the complete legal health record.[facility]
== END 2025-03-26 11:09 | disposition home or self-care (01) ==
LOC: HO.LNP 11:08
PROVIDERS: Visit Provider Internal Medicine
DX: I82.3 Embolism and thrombosis of renal vein (principal); Z79.01 Long term (current) use of anticoagulants
CPT/HCPCS: 85610

== ENCOUNTER 2025-06-28 10:28 | Outpatient (REF) | payer MEDICARE, SELFPAY ==
[2025-06-28 10:33] LABS: MANUAL DIFF FLAG NO
[2025-06-28 10:52] LABS: Hematocrit 43.9 % (37.0-47.0); Hemoglobin 14.2 g/dl (12.0-16.0); Imm Gran Abs Auto 0.01 X10*3/uL (0.00-0.03); Imm Gran Pct Auto 0.2 % (0.0-0.4); Lymphocytes Absolute Auto 1.8 X10*3/uL (1.2-4.9); Mean Corpuscular HGB Conc 32.3 g/dl (31.0-35.0); Mean Corpuscular Hemoglobin 29.0 pg (27.0-33.0); Mean Corpuscular Volume 89.6 fL (80.0-98.0); NRBC Abs Auto 0.000 X10*3/uL (0.0-0.012); NRBC Pct Auto 0.0 /100WBC (0.0-0.2); Platelet Count 281 X10*3/uL (160-400); Red Blood Count 4.90 X10*6/uL (4.20-5.50); White Blood Count 5.8 X10*3/uL (4.8-10.8)
[2025-06-28 10:58] LABS: INTERNATIONAL NORM RATIO 1.7 (0.9-1.1); Prothrombin Time 21.1 SEC (11.2-13.5)
[2025-06-28 12:04] LABS: Alanine Aminotransferase 30 U/L (0-31); Albumin Level 4.6 g/dL (3.5-5.0); Alkaline Phosphatase 96 U/L (39-117); Anion Gap 13 (12-20); Aspartate Amino Transferase 33 U/L (5-31); Blood Urea Nitrogen 11 mg/dL (9-16); Calcium 9.7 mg/dL (8.4-10.2); Carbon Dioxide 25 mmol/L (22-29); Chloride 110 mmol/L (96-108); Cholesterol 143 mg/dL (<200); Estimated Glomerular Filt Rate > 60; HDL Cholesterol 42 mg/dL (>40); Potassium 4.4 mmol/L (3.3-5.1); Sodium 144 mmol/L (135-145); Total Protein 7.1 g/dL (6.5-8.0); Triglycerides 92 mg/dL (<150)
== END 2025-06-28 10:29 | disposition home or self-care (01) ==
LOC: HO.LNP 10:28
PROVIDERS: Visit Provider Internal Medicine
DX: Z51.81 Encounter for therapeutic drug level monitoring (principal); E83.52 Hypercalcemia; E78.00 Pure hypercholesterolemia, unspecified; I82.3 Embolism and thrombosis of renal vein; Z79.01 Long term (current) use of anticoagulants
CPT/HCPCS: 80053; 80061; 85025; 85610

== ENCOUNTER 2025-07-08 09:15 | Outpatient (REF) | payer MEDICARE, SELFPAY ==
[2025-07-08 11:17] LABS: INTERNATIONAL NORM RATIO 2.6 (0.9-1.1); Prothrombin Time 31.1 SEC (11.2-13.5)
== END 2025-07-08 09:16 | disposition home or self-care (01) ==
LOC: HO.LNP 09:15
PROVIDERS: Visit Provider Internal Medicine
DX: I82.3 Embolism and thrombosis of renal vein (principal); Z79.01 Long term (current) use of anticoagulants
CPT/HCPCS: 85610